=== PATIENT | female | born 1995 | race Caucasian/White ===

== ENCOUNTER → 2017-08-29 | Outpatient (CLI) | payer BC ==
--- NOTE | 2017-08-29 16:06 | US ---
EXAMINATION TYPE: US OB anatomy transabd DATE OF EXAM: 08/29/2017 COMPARISON: US HISTORY: O36.62X0 2nd trimester TECHNIQUE: Transabdominal (TA) FINDINGS: EXAM MEASUREMENTS: GESTATIONAL AGE / DATING Physician Established: (19 weeks/5 days) EDC: 01/18/2018 Dates by LMP: (23 weeks/1 day) EDC: 12/25/2017 Dates by First Scan: (19 weeks/5 days) EDC: 01/18/2018 Dates by Current Scan for: (20 weeks/2 days) EDC: 01/14/2018 SURVEY IUP: Single PLACENTA: Anterior PREVIA: No previa FRANSISCA: 14.5 cm Normal CERVICAL LENGTH (transabdominal: norm > 3.0cm): 5.1 cm BIOMETRY PRESENTATION: Vertex LIE: Longitudinal BPD: 4.8 cm 20 weeks / 4 days HC: 17.7 cm 20 weeks / 1 day AC: 15.8 cm 21 weeks / 0 days FL: 3.3 cm 20 weeks / 3 days ESTIMATED WEIGHT IN GRAMS: 369.2 grams ESTIMATED WEIGHT IN LBS/OZ: 0 lbs. 13 oz. WEIGHT PERCENTAGE BASED ON ESTABLISHED DATE: 92.0 % HC/AC: 1.12 Normal FL/AC: 21.1 Normal HEART RATE: 142 bpm RHYTHM: Normal ANATOMY SEEN (within normal limits): Lateral Vent (< 1 cm) 0.9 cm, borderline enlarged Cisterna Magna (< 1.1 cm) 0.4 cm Nuchal Fold (< 0.6 cm) 0.5 cm Cerebellum (varies with age) 2.0 cm Choroid Plexus (bilateral) Midline Falx Four Chamber Heart Stomach Situs Diaphragm Kidneys (bilateral) Bladder Cord Insert Three Vessel Cord Longitudinal Spine Transverse Spine ANATOMY SUBOPTIMALLY VISUALIZED: Cavus Septi Pellucidi Nose / Lips Outflow tracts: LVOT/RVOT Arms (bilateral) Legs (bilateral) LINE MAINTAINER SECTION NOTES: Single, live IUP,20 weeks/2 days, EDC: 01/14/2018, HR 142bpm; focal myometrial con traction was noted on posterior uterine wall at exam's start and subsided by exam's end. IMPRESSION: 1. Single live uterine with established gestational age of 19 weeks 5 days by prior dating scan. Current ultrasound biometry (20 weeks 2 days) is concordant placing the child at the 92nd perce ntile for weight. 2. A few of the structures on the survey were suboptimally visualized (CSP, nose/lips, outflow tracts, bilateral upper and lower extremities). In addition, the ventricles measured at the upper yanes its of normal in size. Consider rescan for missed anatomy in 1 to 2 weeks. 3. Follow-up as indicated given the EFW at the 92nd percentile.
== END | disposition home or self-care (01) ==
LOC: RADUSWWP 10:56
PROVIDERS: ATTEND Obstetrics & Gynecology
DX: O36.62X0 Maternal care for excessive fetal growth, second trimester, not applicable or unspecified (principal); Z3A.20 20 weeks gestation of pregnancy
CPT/HCPCS: 76811

== ENCOUNTER → 2017-09-11 | Outpatient (CLI) | payer BC ==
--- NOTE | 2017-09-12 08:00 | US ---
EXAMINATION TYPE: US OB Call Back DATE OF EXAM: 09/11/2017 COMPARISON: 08/29/2017 CLINICAL HISTORY: Z36 Confirm Dates f/u from remainder. GESTATIONAL AGE / DATING Dates by Initial Survey Scan: (20 weeks/2 days) EDC: 01/14/18 HEART RATE: 143 bpm RHYTHM: Normal ANATOMY SEEN (second anatomic survey look): Cavus Septi Pellucidi: Outflow tracts:? LVOT/RVOT Nose / Lips: Arms (bilateral): Legs (bilateral): MATERNAL WALL MEASUREMENT: 3.4 cm from skin to anterior uterine wall (if exam limited due to body perez bitus). IMPRESSION: Visualized anatomy within normal limits
== END ==
LOC: CANPRECLI → RADUSWWP 15:43
PROVIDERS: ATTEND Obstetrics & Gynecology
DX: Z53.9 Procedure and treatment not carried out, unspecified reason (principal)

== ENCOUNTER 2017-12-08 12:36 | Outpatient (CLI) | payer BC ==
[2017-12-08 13:08] VITALS: BP 106/58; PULSE 137; RESP 20; TEMP 98.9
[2017-12-08 13:10] LABS: Appearance,Urine Cloudy (Clear); Bacteria,Urine Rare /hpf; Bilirubin,Urine Negative (Negative); Blood,Urine Negative (Negative); Color,Urine Yellow; Glucose,Urine (UA) Negative (Negative); Ketones,Urine Negative (Negative); Leukocyte Esterase,Urine Negative (Negative); Mucus,Urine Rare /hpf; Nitrite,Urine Negative (Negative); PH, Urine 6.5 (5.0-8.0); Protein,Urine 1+ (Negative); RBC,Urine <1 /hpf (0-5); Specific Gravity,Urine 1.019 (1.001-1.035); Squamous Epithelial Cell,Urine 11 /hpf (0-4); WBC,Urine 2 /hpf (0-5)
--- NOTE | 2017-12-09 07:30 | P.MSEPDOC ---
Presenting Problems - Arrival Data Date of Arrival on Unit: 12/08/17 Time of Arrival on Unit: 12:42 Mode of Transport: Ambulatory - Complaint OB-Reason for Admission/Chief Complaint: Pain Comment: pt c/o back pain that comes and goes since monday denies any leaking of fluid or bleeding Medical History - Information : 1 Para: 0 Term: 0 : 0 Abortions: Spontaneous or Elective: 0 Number of Living Children: 0 - Gestational Age Gestational Age by CARINE (wks/days): 34 Weeks and 1 Days Review of Systems - Review of Systems Constitutional: No problems Breast: No problems ENT: No problems Cardiovascular: No problems Respiratory: No problems Gastrointestinal: No problems Genitourinary: No problems Musculoskeletal: No problems Neurological: No problems Skin: No problems Comment: pt heart rate 125-130. pt denies any heart problems pt asked if shes been drinking alot of fluid pt denies at this time Vital Signs - Temperature Temperature: 98.9 F Temperature Source: Oral - Pulse Right Brachial Pulse Rate: 137 Pulse Assessment Method: Automatic Cuff - Respirations Respiratory Rate: 20 Oxygen Delivery Method: Room Air - Blood Pressure Right Arm Blood Pressure: 106/58 Blood Pressure Mean: 74 Blood Pressure Source: Automatic Cuff Medical Screen Scoring (Pre) - Cervical Exam Dilation: 0 cm = 0 Membranes: Intact - Uterine Contractions Frequency: N/A Duration: N/A - Maternal Vital Signs Maternal Temperature: N/A Maternal Blood Pressure: N/A Signs of Preeclampsia: Headache = 1 Maternal Respirations: N/A - Pain Assessment Pain Location and Character: Back Pain Scale Used: Numeric (1 - 10) Pain Intensity: 2 Pain Management Goal: 2 Pain Description: Stabbing Pain Radiation Location: n/a Pain Frequency: Occasional Pain Duration: 30 Pain Duration Units: Minutes Pain Behavior: Vocalization Pain Aggravating Factors: Position, Walking Non-Pharmacological Interventions: Heat, Position/Reposition - Maternal Trauma Maternal Trauma: N/A - Assessment Baseline FHR: 150 Heart Rate - NICHD Category: Category I (Normal) = 0 - Total Score Total Score (Pre): 1 Medical Screen Scoring (Post) - Assessment Heart Rate: 150 Heart Rate - NICHD Category: Category I (Normal) = 0 NST: Reactive Position: N/A Station: N/A - Total Score Total Score (Post): 0 - Post Treatment Level of Risk Post Treatment Level of Risk: Low (0-5) Physician Notification (Post) - Physician Notified Physician Notified Date: 12/08/17 Physician Notified Time: 13:20 Spoke With: dr walsh New Order Received: Yes - Notification Comment Comment: pt transferred to the er for further evulation for tachycardia Disposition - Disposition OB Disposition: Transfer to other dept./facility Transferred to:: ER Discharge Date: 12/08/17 Discharge Time: 13:30 I agree with the RN Medical Screening Exam: Yes Risk & Benefit of care provided described in d/c instruction: Yes Diagnosis: LOW BACK PAIN
== END 2017-12-08 13:30 ==
LOC: FBPOP 12:36
PROVIDERS: ATTEND Obstetrics & Gynecology
DX: O99.89 Other specified diseases and conditions complicating pregnancy, childbirth and the puerperium (principal); M54.5 Low back pain; Z3A.34 34 weeks gestation of pregnancy
CPT/HCPCS: 59025; 81001; 99213

== ENCOUNTER 2017-12-08 13:31 | Emergency (ER) | payer BC ==
[2017-12-08] MEDS ORDERED: SODIUM CHLORIDE 0.9% 1,000 ML IV STA (13:48)
[2017-12-08] MEDS ORDERED: SODIUM CHLORIDE 0.9% 500 ML IV STA (13:48)
--- NOTE | 2017-12-08 14:04 | ED ---
Recheck HPI - General Chief Complaint: Recheck/Abnormal Lab/Rx Stated Complaint: Tachycardiac Time Seen by Provider: 12/08/17 13:47 Source: patient, RN notes reviewed Mode of arrival: ambulatory Limitations: no limitations - History of Present Illness Initial Comments: 22-year-old female presents emergency Department chief complaint of tachycardia. Patient states that she went to labor and delivery today because she was having some back discomfort nephrology was not in labor. They did find that her heart rate was elevated which she states she's been sick and not drinking as much. States that she's had COLD like symptoms. Denies any chest pain. Patient denies any shortness of breath time. Denies fever, chills. Patient states that they sent her down here for evaluation secondary to her elevated heart rate. Patient has no abdominal pain denies any vaginal bleeding vaginal discharge. No dysuria, hematuria. - Related Data Home Medications Medication Instructions Recorded Confirmed No Known Home Medications [No 06/21/17 12/08/17 Known Home Medications] Allergies Allergy/AdvReac Type Severity Reaction Status Date / Time No Known Allergies Allergy Verified 12/08/17 13:44 Review of Systems ROS Statement: Those systems with pertinent positive or pertinent negative responses have been documented in the HPI. ROS Other: All systems not noted in ROS Statement are negative. Past Medical History Past Medical History: No Reported History Additional Past Medical History / Comment(s): anemia History of Any Multi-Drug Resistant Organisms: None Reported Past Surgical History: Ear Surgery Additional Past Surgical History / Comment(s): LEFT EYE PROBLEM, PE EARS Past Psychological History: No Psychological Hx Reported Smoking Status: Never smoker Past Alcohol Use History: None Reported Past Drug Use History: None Reported General Exam Limitations: no limitations General appearance: alert, in no apparent distress Head exam: Present: atraumatic, normocephalic, normal inspection Eye exam: Present: normal appearance, PERRL, EOMI. Absent: scleral icterus, conjunctival injection, periorbital swelling ENT exam: Present: normal exam, normal oropharynx, mucous membranes moist, TM's normal bilaterally, normal external ear exam Neck exam: Present: normal inspection, full ROM. Absent: tenderness, meningismus, lymphadenopathy Respiratory exam: Present: normal lung sounds bilaterally. Absent: respiratory distress, wheezes, rales, rhonchi, stridor Cardiovascular Exam: Present: normal rhythm, tachycardia (Tachycardic at 118 on triage.), normal heart sounds. Absent: systolic murmur, diastolic murmur, rubs , gallop, clicks GI/Abdominal exam: Present: soft, normal bowel sounds. Absent: distended, tenderness, guarding, rebound, rigid Skin exam: Present: warm, dry, intact, normal color. Absent: rash Course Vital Signs 12/08/17 12/08/17 12/08/17 13:37 14:35 15:21 Temperature 99.6 F 100.8 F H Pulse Rate 118 H 118 H 114 H Respiratory 22 18 18 Rate Blood Pressure 130/61 121/60 O2 Sat by Pulse 99 96 98 Oximetry Medical Decision Making - Medical Decision Making 22-year-old female sent down from labor and delivery for tachycardia. Patient is tachycardic secondary to influenza, fever. Patient was well-hydrated ( reviewed. Patient's urinalysis was refill labor and delivery. Patient states she feels improved. Patient was given Tylenol upon discharge and will be follow -up with [facility] and return parameters were discussed. - Lab Data Result diagrams: 12/08/17 14:20 12/08/17 14:20 Lab Results 12/08/17 12/08/17 12/08/17 Range/Units 14:20 14:20 14:20 WBC 6.9 (4.0-11.0) k/uL RBC 4.72 (3.80-5.40) m/uL Hgb 12.6 (11.4-16.0) gm/dL Hct 36.3 (34.0-46.0) % MCV 76.9 L (80.0-100.0) fL MCH 26.7 (25.0-35.0) pg MCHC 34.7 (31.0-37.0) g/dL RDW 13.9 (11.5-15.5) % Plt Count 226 (150-450) k/uL Neutrophils % 83 % Lymphocytes % 9 % Monocytes % 6 % Eosinophils % 1 % Basophils % 0 % Neutrophils # 5.7 (1.3-7.7) k/uL Lymphocytes # 0.6 L (1.0-4.8) k/uL Monocytes # 0.4 (0-1.0) k/uL Eosinophils # 0.0 (0-0.7) k/uL Basophils # 0.0 (0-0.2) k/uL Poikilocytosis Slight Sodium 137 (137-145) mmol/L Potassium 4.3 (3.5-5.1) mmol/L Chloride 107 (98-107) mmol/L Carbon Dioxide 19 L (22-30) mmol/L Anion Gap 11 mmol/L BUN 8 (7-17) mg/dL Creatinine 0.50 L (0.52-1.04) mg/dL Est GFR (CKD-EPI)AfAm >90 (>60 ml/min/1.73 sqM) Est GFR (CKD-EPI)NonAf >90 (>60 ml/min/1.73 sqM) Glucose 73 L (74-99) mg/dL Calcium 8.9 (8.4-10.2) mg/dL Total Bilirubin 0.9 (0.2-1.3) mg/dL AST 34 (14-36) U/L ALT 20 (9-52) U/L Alkaline Phosphatase 148 H (38-126) U/L Troponin I <0.012 (0.000-0.034) ng/mL Total Protein 6.5 (6.3-8.2) g/dL Albumin 3.4 L (3.5-5.0) g/dL Amylase 50 (30-110) U/L Lipase 88 (23-300) U/L Influenza Type A RNA (Not Detectd) Influenza Type B (PCR) (Not Detectd) 12/08/17 Range/Units 14:20 WBC (4.0-11.0) k/uL RBC (3.80-5.40) m/uL Hgb (11.4-16.0) gm/dL Hct (34.0-46.0) % MCV (80.0-100.0) fL MCH (25.0-35.0) pg MCHC (31.0-37.0) g/dL RDW (11.5-15.5) % Plt Count (150-450) k/uL Neutrophils % % Lymphocytes % % Monocytes % % Eosinophils % % Basophils % % Neutrophils # (1.3-7.7) k/uL Lymphocytes # (1.0-4.8) k/uL Monocytes # (0-1.0) k/uL Eosinophils # (0-0.7) k/uL Basophils # (0-0.2) k/uL Poikilocytosis Sodium (137-145) mmol/L Potassium (3.5-5.1) mmol/L Chloride (98-107) mmol/L Carbon Dioxide (22-30) mmol/L Anion Gap mmol/L BUN (7-17) mg/dL Creatinine (0.52-1.04) mg/dL Est GFR (CKD-EPI)AfAm (>60 ml/min/1.73 sqM) Est GFR (CKD-EPI)NonAf (>60 ml/min/1.73 sqM) Glucose (74-99) mg/dL Calcium (8.4-10.2) mg/dL Total Bilirubin (0.2-1.3) mg/dL AST (14-36) U/L ALT (9-52) U/L Alkaline Phosphatase (38-126) U/L Troponin I (0.000-0.034) ng/mL Total Protein (6.3-8.2) g/dL Albumin (3.5-5.0) g/dL Amylase (30-110) U/L Lipase (23-300) U/L Influenza Type A RNA Detected H (Not Detectd) Influenza Type B (PCR) Not Detected (Not Detectd) - EKG Data EKG Comments: EKG performed at 13:49 sinus tachycardia rate of 125 [place] 124 QRS 72 QT/QTC 322/ 464 Disposition Clinical Impression: Influenza Disposition: HOME SELF-CARE Condition: Stable Instructions: Influenza (ED) Additional Instructions: Continue to increase your fluids and take acetaminophen as directed.Please return to the Emergency Department if symptoms worsen or any other concerns. Referrals: None,Stated [Primary Care Provider] - 1-2 days Time of Disposition: 15:25
--- NOTE | 2017-12-08 14:17 | XR ---
EXAMINATION TYPE: XR chest 2V DATE OF EXAM: 12/08/2017 COMPARISON: NONE TECHNIQUE: PA and lateral views submitted. HISTORY: Abnormal EKG FINDINGS: The lungs are clear and there is no pneumothorax, pleural effusion, or focal pneumonia. Heart size within normal limits. No overt failure. IMPRESSION: 1. No acute process.
[2017-12-08 14:37] VITALS: RESP 18
[2017-12-08 14:42] LABS: Basophils % (A) 0 %; Eosinophils % (A) 1 %; HCT 36.3 % (34.0-46.0); HGB 12.6 gm/dL (11.4-16.0); Lymphocytes # (A) 0.6 k/uL (1.0-4.8); Lymphocytes % (A) 9 %; MCH 26.7 pg (25.0-35.0); MCHC 34.7 g/dL (31.0-37.0); MCV 76.9 fL (80.0-100.0); Mean Platelet Volume 8.2; Monocytes # (A) 0.4 k/uL (0-1.0); Monocytes % (A) 6 %; Neutrophils # (A) 5.7 k/uL (1.3-7.7); Neutrophils % (A) 83 %; Platelet Count 226 k/uL (150-450); Poikilocytosis Slight; RBC 4.72 m/uL (3.80-5.40); RDW 13.9 % (11.5-15.5); WBC 6.9 k/uL (4.0-11.0)
[2017-12-08 14:54] LABS: ALT 20 U/L (9-52); AST 34 U/L (14-36); Albumin 3.4 g/dL (3.5-5.0); Alkaline Phosphatase 148 U/L (38-126); Amylase 50 U/L (30-110); Anion Gap 11 mmol/L; Blood Urea Nitrogen 8 mg/dL (7-17); Calcium 8.9 mg/dL (8.4-10.2); Carbon Dioxide 19 mmol/L (22-30); Chloride 107 mmol/L (98-107); Glucose 73 mg/dL (74-99); Lipase 88 U/L (23-300); Sodium 137 mmol/L (137-145); Total Bilirubin 0.9 mg/dL (0.2-1.3); Total Protein 6.5 g/dL (6.3-8.2)
[2017-12-08 14:59] LABS: Potassium 4.3 mmol/L (3.5-5.1)
[2017-12-08] MEDS ORDERED: ACETAMINOPHEN TAB 500 MG TAB PO STA (15:21)
[2017-12-08 15:22] VITALS: PULSE 114; TEMP 100.8
[2017-12-08 15:38] VITALS: BP 136/62
== END 2017-12-08 15:43 | disposition home or self-care (01) ==
LOC: EC 13:31
DX: O99.513 Diseases of the respiratory system complicating pregnancy, third trimester (principal); J11.1 Influenza due to unidentified influenza virus with other respiratory manifestations; O99.89 Other specified diseases and conditions complicating pregnancy, childbirth and the puerperium; R00.0 Tachycardia, unspecified; Z3A.34 34 weeks gestation of pregnancy
CPT/HCPCS: 36415; 71046; 80053; 82150; 83690; 84484; 85025; 87502; 93005; 96360; 99285

== ENCOUNTER → 2017-12-19 | Outpatient (CLI) | payer BC ==
--- NOTE | 2017-12-19 14:55 | US ---
EXAMINATION TYPE: US OB anatomy transabd DATE OF EXAM: 12/19/2017 COMPARISON: Prior ultrasound August 29, 2017 HISTORY: Large for dates 3rd Trimester O36.63X0 Anatomy per order. TECHNIQUE: Transabdominal (TA) EXAM MEASUREMENTS: GESTATIONAL AGE / DATING Physician Established: (35 weeks/5 days) EDC: 01/18/2018 Dates by Current Scan for: (35 weeks/1 days) EDC: 01/22/2018 SURVEY IUP: Single PLACENTA: Anterior PREVIA: No previa FRANSISCA: 11.4 cm Normal CERVICAL LENGTH (transabdominal: norm > 3.0cm): 3.9 cm BIOMETRY PRESENTATION: Vertex LIE: Longitudinal BPD: 8.6 cm 34 weeks / 5 days HC: 31.1 cm 34 weeks / 6 days AC: 31.6 cm 35 weeks / 4 days FL: 6.9 cm 35 weeks / 3 days ESTIMATED WEIGHT IN GRAMS: 2654 grams ESTIMATED WEIGHT IN LBS/OZ: 5 lbs. 14 oz. WEIGHT PERCENTAGE BASED ON ESTABLISHED DATE: 39.1 % HC/AC: 1.0 Normal FL/AC: 21.9 Normal HEART RATE: 154 bpm RHYTHM: Normal ANATOMY SEEN (within normal limits): * Lateral Vent (< 1 cm) 0.7 cm Choroid Plexus (bilateral) Midline Falx Four Chamber Heart Stomach Situs Bladder Three Vessel Cord Longitudinal Spine Transverse Spine Legs (bilateral) ANATOMY SEEN (does not appear within normal limits): Kidneys (bilateral) -- dilated renal pelvis- Right= 8.1 mm Left= 7.0 mm ANATOMY NOT SEEN: * Cisterna Magna * Nuchal Fold * Cerebellum Cavus Septi Pellucidi Outflow tracts: LVOT/RVOT Nose / Lips Diaphragm Cord Insert Arms (bilateral) Single live intrauterine gestation is redemonstrated. Normal cephalad presentation to fetus is curren tly seen. No suspicious cervical thinning is present. Amniotic fluid index is calculated within mu l limits. There is no ultrasound evidence for placenta previa. biometry measurements are concor dant and felt within normal limits currently. Detailed anatomical survey is suboptimal due to advanced age. Note is made of portions suboptim ally evaluated during real-time scanning noted above. On current study there appears to be fairly mod erate bilateral pyelocaliectasis. Given presence of normal amniotic fluid index this likely can be mo nitored or reevaluated post delivery. IMPRESSION: As above
== END | disposition home or self-care (01) ==
LOC: RADUSWWP 13:41
PROVIDERS: ATTEND Obstetrics & Gynecology
DX: O36.63X3 Maternal care for excessive fetal growth, third trimester, fetus 3 (principal); Z3A.35 35 weeks gestation of pregnancy
CPT/HCPCS: 76811

== ENCOUNTER 2018-01-04 10:42 | Outpatient (CLI) | payer BC ==
[2018-01-04 11:12] VITALS: BP 114/73; PULSE 114; RESP 18; TEMP 97.5
--- NOTE | 2018-01-05 05:57 | P.MSEPDOC ---
Presenting Problems - Arrival Data Date of Arrival on Unit: 01/04/18 Time of Arrival on Unit: 10:50 Mode of Transport: Ambulatory - Complaint OB-Reason for Admission/Chief Complaint: Rule Out SROM Comment: appt with dr Hubbard on with cervical exam, leaking fluid since mon, + intercourse this morning Medical History - Information : 1 Para: 0 Term: 0 : 0 Abortions: Spontaneous or Elective: 0 Number of Living Children: 0 - Gestational Age Gestational Age by CARINE (wks/days): 38 Weeks and 0 Days - History Comment: denies complications Review of Systems - Review of Systems Constitutional: No problems Breast: No problems ENT: No problems Cardiovascular: No problems Respiratory: No problems Gastrointestinal: No problems Genitourinary: No problems Musculoskeletal: No problems Neurological: No problems Skin: No problems Vital Signs - Temperature Temperature: 97.5 F Temperature Source: Temporal Artery Scan - Pulse Right Sitting Brachial Pulse Rate: 114 Pulse Assessment Method: Automatic Cuff - Respirations Respiratory Rate: 18 Oxygen Delivery Method: Room Air - Blood Pressure Right Arm Sitting Blood Pressure: 114/73 Blood Pressure Mean: 86 Blood Pressure Source: Automatic Cuff Medical Screen Scoring (Pre) - Cervical Exam Dilation: 1-3 cm = 1 - Uterine Contractions Frequency: > 5 minutes apart = 1 Duration: N/A Intensity: N/A - Maternal Vital Signs Maternal Temperature: N/A Maternal Blood Pressure: N/A Signs of Preeclampsia: N/A Maternal Respirations: N/A - Pain Assessment Pain Location and Character: Back Pain Scale Used: Numeric (1 - 10) Pain Intensity: 2 Pain Management Goal: 3 Pain Description: Aching Pain Radiation Location: none Pain Frequency: Occasional Pain Duration: 10 Pain Duration Units: Minutes Pain Behavior: None Exhibited Pain Aggravating Factors: Activity - Maternal Trauma Maternal Trauma: N/A - Assessment Baseline FHR: 135 Heart Rate - NICHD Category: Category I (Normal) = 0 NST: Reactive Position: N/A Station: N/A - Total Score Total Score (Pre): 2 - Level of Risk Level of Risk: Low (0-5) Physician Notification (Post) - Physician Notified Physician Notified Date: 01/04/18 Physician Notified Time: 11:20 Physician/Practitioner Notified:: Dr Mckoy Spoke With: Dr Mckoy New Order Received: Yes - Notification Comment Comment: Discharge home after reactive NST Disposition - Disposition OB Disposition: Discharge to home Discharge Date: 01/04/18 Discharge Time: 11:23 I agree with the RN Medical Screening Exam: Yes Risk & Benefit of care provided described in d/c instruction: Yes Diagnosis: FALSE LABOR AT OR AFTER 37 COMPLETED WEEKS OF GESTATION
== END 2018-01-04 11:26 | disposition home or self-care (01) ==
LOC: FBPOP 10:42
PROVIDERS: ATTEND Obstetrics & Gynecology
DX: O47.1 False labor at or after 37 completed weeks of gestation (principal); Z3A.38 38 weeks gestation of pregnancy
CPT/HCPCS: 59025; 84112; 99213

== ENCOUNTER 2018-01-06 13:05 | Inpatient (IN) | payer BC ==
[2018-01-06] MEDS ORDERED: OXYTOCIN 10 UNIT/ML 1 ML VIAL IM PRN (13:28)
[2018-01-06] MEDS ORDERED: LIDOCAINE 1% (PF) 10 MG/ML (30 ML SDV) SQ PRN (13:28)
[2018-01-06] MEDS ORDERED: METHYLERGONOVINE 0.2 MG/ML 1 ML AMP IM PRN (13:28)
[2018-01-06] MEDS ORDERED: TERBUTALINE 1 MG/ML VIAL SQ PRN (13:28)
[2018-01-06] MEDS ORDERED: CARBOPROST TROMETHAMINE 250 MCG/ML 1 ML AMP IM PRN (13:28)
[2018-01-06 14:21] LABS: Basophils % (A) 0 %; Eosinophils % (A) 0 %; HCT 37.3 % (34.0-46.0); HGB 12.3 gm/dL (11.4-16.0); Lymphocytes # (A) 3.2 k/uL (1.0-4.8); Lymphocytes % (A) 28 %; MCH 25.6 pg (25.0-35.0); MCHC 32.9 g/dL (31.0-37.0); MCV 77.9 fL (80.0-100.0); Mean Platelet Volume 9.2; Monocytes # (A) 0.5 k/uL (0-1.0); Monocytes % (A) 4 %; Neutrophils # (A) 7.7 k/uL (1.3-7.7); Neutrophils % (A) 66 %; Platelet Count 287 k/uL (150-450); RBC 4.79 m/uL (3.80-5.40); RDW 15.6 % (11.5-15.5); WBC 11.7 k/uL (4.0-11.0)
[2018-01-06 14:50] VITALS: BMI 39.8
[2018-01-06] MEDS ORDERED: BUTORPHANOL 1 MG/ML 1 ML VIAL IV PRN (14:57)
[2018-01-06] MEDS: OXYTOCIN 20 UNITS/1000 ML NS 1,000 ML IV SCH (15:18)
[2018-01-06] MEDS: LACTATED RINGERS 1,000 ML IV SCH ×4 (15:18→21:43)
[2018-01-06 16:36] LABS: Amphetamine Screen,Urine Not Detected (NotDetected); Barbiturate Screen,Urine Not Detected (NotDetected); Benzodiazepines Screen,Urine Not Detected (NotDetected); Cocaine Screen,Urine Not Detected (NotDetected); Methadone Screen, Urine Not Detected (NotDetected); Opiate Screen,Urine Not Detected (NotDetected); Oxycodone Screen, Urine Not Detected (NotDetected); Phencyclidine Screen,Urine Not Detected (NotDetected); Tricyclic Antidepressant,Urine Not Detected (NotDetected); Urn Cannabinoid Scrn Not Detected (NotDetected)
[2018-01-06] MEDS ORDERED: SODIUM CHLORIDE 0.9% 100 ML BAG ONE ×2 (17:22→20:17)
[2018-01-06] MEDS ORDERED: fentaNYL (PF) 50 MCG/ML 5 ML AMP ONE ×2 (17:22→20:17)
[2018-01-06] MEDS ORDERED: BUPIVACAINE (PF) 0.25% 30 ML VIAL ONE ×2 (17:22→20:17)
[2018-01-06] MEDS ORDERED: BUPIVACAINE (PF) 0.25% 25 ML, fentaNYL (PF) 200 MCG in SODIUM CHLORIDE 0.9% 71 ML EPIDURAL ONE (17:50)
[2018-01-06] MEDS ORDERED: CITRIC ACID-SODIUM CITRATE 15 ML CUP PO ONE (19:49)
[2018-01-06] MEDS ORDERED: ceFAZolin IN SWFI 2 GM/20 ML SYRINGE IVP ONE (19:49)
[2018-01-06] MEDS ORDERED: KETOROLAC 30 MG/ML 1 ML VIAL ONE (20:17)
[2018-01-06] MEDS ORDERED: MORPHINE SULFATE (PF) 0.3 MG/0.3 ML SYR ONE (20:17)
[2018-01-06] MEDS ORDERED: ONDANSETRON 4 MG/2 ML VIAL ONE (20:17)
[2018-01-06] MEDS ORDERED: OXYTOCIN 10 UNIT/ML 1 ML VIAL ONE (20:17)
[2018-01-06] MEDS ORDERED: ONDANSETRON 4 MG/2 ML VIAL IVP PRN (20:51)
[2018-01-06] MEDS ORDERED: diphenhydrAMINE 25 MG CAP PO PRN (20:51)
[2018-01-06] MEDS ORDERED: HYDROcodone/APAP 7.5-325MG 1 EACH TAB PO PRN (20:51)
[2018-01-06] MEDS ORDERED: diphenhydrAMINE 50 MG CAP PO PRN (20:51)
[2018-01-06] MEDS ORDERED: METOCLOPRAMIDE 5 MG/ML 2 ML VIAL IVP PRN (20:51)
[2018-01-06] MEDS ORDERED: ACETAMINOPHEN TAB 325 MG TAB PO PRN (20:51)
[2018-01-06] MEDS ORDERED: ZOLPIDEM 5 MG TAB PO PRN (20:51)
[2018-01-06] MEDS ORDERED: diphenhydrAMINE 50 MG/ML 1 ML VIAL IVP PRN ×2 (20:51)
[2018-01-06] MEDS ORDERED: NALOXONE 0.4 MG/ML 1 ML VIAL IV PRN (20:51)
--- NOTE | 2018-01-06 20:55 | P.HPOB ---
History of Present Illness H&P Date: 01/06/18 Chief Complaint: Intrauterine at term: Prom Patient is a 22-year-old at 38 weeks 2 days' gestation arise following spontaneous rupture of membranes. Fluid is noted be clear. She denies any constipation with the and is feeling well at this time however she is not michael. Pitocin augmentation of labor will be initiated. She was followed by Dr. Hector antigen had no significant competitions pertinent labs did include O+ blood type Rh and it was negative, rubella immune, hepatitis B surface antigen RPR were negative. Group B strep was also negative. Past Medical History Past Medical History: No Reported History Additional Past Medical History / Comment(s): anemia History of Any Multi-Drug Resistant Organisms: None Reported Past Surgical History: Ear Surgery Additional Past Surgical History / Comment(s): LEFT EYE PROBLEM, PE EARS Past Anesthesia/Blood Transfusion Reactions: No Reported Reaction Past Psychological History: No Psychological Hx Reported Smoking Status: Never smoker Past Alcohol Use History: None Reported Past Drug Use History: None Reported - Past Family History Mother History Unknown: Yes Medications and Allergies Home Medications Medication Instructions Recorded Confirmed Type No Known Home Medications [No 06/21/17 01/06/18 History Known Home Medications] Allergies Allergy/AdvReac Type Severity Reaction Status Date / Time No Known Allergies Allergy Verified 01/06/18 13:13 Exam Osteopathic Statement: *. No significant issues noted on an osteopathic structural exam other than those noted in the History and Physical/Consult. - Vital Signs Vital signs: Vital Signs Temp Pulse Pulse Resp BP BP Pulse Ox 01/06/18 13:30 97.6 F 100 18 114/57 97 01/06/18 13:15 97.6 F 100 100 18 114/57 114/57 97 Intake and Output 01/06/18 01/06/18 01/06/18 06:59 14:59 22:59 Other: Weight 105.233 kg - OBG Physical Exam Breast: both: normal (no masses) Abdomen: bowel sounds normal, no diffuse tenderness, no bruit present, no guarding noted, no hepatomegaly, no splenomegaly, no mass Vulva: both: normal Vagina: normal moisture, no discharge Cervix: Dilated to 3 cm 60% effaced -3 station Cervix: no lesion, no discharge Uterus: normal size, normal contour Adnexa: both: normal Anus/Rectum: normal perianal skin, no rectal mass, no hemorrhoids, heme negative Results Result Diagrams: 01/06/18 13:45 Abnormal Lab Results - Last 24 Hours (Table) 01/06/18 Range/Units 13:45 WBC 11.7 H (4.0-11.0) k/uL MCV 77.9 L (80.0-100.0) fL RDW 15.6 H (11.5-15.5) % Assessment and Plan Assessment: Intrauterine at term: Prom
--- NOTE | 2018-01-06 20:58 | P.OP ---
Date of Procedure: 01/06/18 Preoperative Diagnosis: Intrauterine at term: Nonreassuring heart tones: Arrest of active phase of labor Postoperative Diagnosis: Same Procedure(s) Performed: Primary low transverse section Anesthesia: epidural Surgeon: Deandre Llamas Educational Program Assistant #1: Damian Jin Estimated Blood Loss (ml): 500 IV fluids (ml): 700 Urine output (ml): 100 Pathology: other (Placenta) Condition: stable Disposition: floor Operative Findings: Female scores of 8 and 9 at one and 5 minutes respectively and the weight was 6 lbs. 11 oz. Description of Procedure: Patient was taken to the operating suite where a epidural anesthetic was found be adequate. She was prepped and draped in normal sterile fashion and placed in dorsal supine position with leftward tilt. Initially a Pfannenstiel skin incision was made and this incision was then carried through to underlying layer of the fascia was second knife. Fascia was then nicked in the midline and this opening was extended laterally with Burger scissors. Superior and inferior aspect of this incision were then grasped tented up and bluntly and sharply dissected off the rectus muscles. Rectus muscles were then divided midline and blunt dissection through the peritoneum was made. This opening was then extended superiorly and inferiorly with good visualization of both bowel bladder. Bladder blade was then placed and the vesicouterine peritoneum identified. This tissue was then entered with Metzenbaum scissors and carried across face uterus with metastases scissors. Bladder flap was then digitally created. Knife was then used to incise uterus hemostat was used to fully entered the uterine cavity and this incision was then extended bluntly. Head was then H medically delivered mouth nares were bulb suctioned. Anterior and posterior shoulders then delivered without difficulty and umbilical cord was clamped cut usual fashion with nursery personnel present to assume care. Placenta was then delivered intact and Pitocin was added to the IV. Uterus was then exteriorized cleared of clots and debris and closed in 2 layers with 0 Vicryl suture. Once hemostasis was obtained blood and debris was suctioned from the posterior cul-de-sac and uterus was reinserted into the abdomen. Peritoneal layer was then closed with 3-0 Vicryl. Fascial layer was closed with 0 Vicryl's. One layer of 3-0 Vicryl was placed in the deep subcu taken tissues to reapproximate the skin and the skin was then closed with 3-0 Vicryl. Sponge, lap, needle counts were all correct 2. Patient was then taken to the recovery room in stable and satisfactory condition.
[2018-01-07] MEDS: KETOROLAC 30 MG/ML 1 ML VIAL IVP SCH ×4 (03:14→22:24)
[2018-01-07 07:18] LABS: Basophils % (A) 0 %; Eosinophils # (A) 0.1 k/uL (0-0.7); Eosinophils % (A) 0 %; HCT 32.1 % (34.0-46.0); HGB 10.7 gm/dL (11.4-16.0); Lymphocytes # (A) 2.8 k/uL (1.0-4.8); Lymphocytes % (A) 24 %; MCH 26.6 pg (25.0-35.0); MCHC 33.4 g/dL (31.0-37.0); MCV 79.8 fL (80.0-100.0); Mean Platelet Volume 8.4; Monocytes # (A) 0.9 k/uL (0-1.0); Monocytes % (A) 7 %; Neutrophils % (A) 67 %; Platelet Count 223 k/uL (150-450); RBC 4.02 m/uL (3.80-5.40); RDW 15.4 % (11.5-15.5)
--- NOTE | 2018-01-07 08:05 | P.PNOBGPC ---
Subjective - Subjective Principal diagnosis: Postop day 1 Interval history: Overall doing very well. Vital signs are stable and afebrile. Voices no complaints. Patient reports: Reports appetite normal, Reports voiding normally, Reports pain well controlled, Reports ambulating normally [place]: doing well Objective - Vital Signs Latest vital signs: Vital Signs Temp Pulse Pulse Resp BP BP BP 01/07/18 04:00 98.1 F 72 16 110/54 01/06/18 23:00 97.9 F 106 H 16 125/61 01/06/18 22:26 97.5 F L 97 16 121/66 01/06/18 21:56 95 16 134/60 01/06/18 21:41 97.9 F 100 16 130/61 01/06/18 21:26 97.9 F 109 H 16 142/77 01/06/18 21:11 98 18 148/66 01/06/18 20:56 97.2 F L 114 H 18 119/58 01/06/18 13:30 97.6 F 100 18 114/57 01/06/18 13:15 97.6 F 100 100 18 114/57 114/57 Pulse Ox 01/07/18 04:00 98 01/06/18 23:00 98 01/06/18 22:26 97 01/06/18 21:56 98 01/06/18 21:41 100 01/06/18 21:26 99 01/06/18 21:11 99 01/06/18 20:56 98 01/06/18 13:30 97 01/06/18 13:15 97 Intake and Output 01/06/18 01/07/18 01/07/18 22:59 06:59 14:59 Intake Total 700 1000 Output Total 600 900 Balance 100 100 Intake: IV 700 Intake, IV Titration 1000 Amount Lactated Ringers 1,000 ml 1000 @ 125 mls/hr IV .Q8H [facility] Rx#:[id number] Output: Urine 100 900 Uretheral (Nixon) 500 Estimated Blood Loss 500 Other: Voiding Method Indwelling Catheter Indwelling Catheter - Exam Lungs: bilateral: normal Chest: Normal S1, Normal S2 Extremities: Present: normal Abdomen: Present: normal appearance, soft. Absent: distention, tenderness Incision: Present: normal, dry, intact Uterus: Present: normal, firm - Labs Labs: Abnormal Lab Results - Last 24 Hours (Table) 01/06/18 01/07/18 Range/Units 13:45 06:57 WBC 11.7 H 12.0 H (4.0-11.0) k/uL Hgb 10.7 L (11.4-16.0) gm/dL Hct 32.1 L (34.0-46.0) % MCV 77.9 L 79.8 L (80.0-100.0) fL RDW 15.6 H (11.5-15.5) % Neutrophils # 8.0 H (1.3-7.7) k/uL
[2018-01-07] MEDS: SENNOSIDES-DOCUSATE SODIUM 1 EACH TAB PO SCH ×2 (08:15→20:06)
[2018-01-07] MEDS: LACTATED RINGERS 1,000 ML IV SCH ×2 (20:46→22:25)
[2018-01-07] MEDS: OXYTOCIN 20 UNITS/1000 ML NS 1,000 ML IV SCH (20:47)
[2018-01-08] MEDS: KETOROLAC 30 MG/ML 1 ML VIAL IVP SCH (01:06)
--- NOTE | 2018-01-08 07:08 | P.PNOBGPC ---
Subjective - Subjective Principal diagnosis: Postop day 2 Interval history: Doing very well. Involuting, voiding, tolerating her diet, and passing flatus. Patient reports: Reports appetite normal, Reports voiding normally, Reports pain well controlled, Reports ambulating normally [place]: doing well Objective - Vital Signs Latest vital signs: Vital Signs Temp Pulse Pulse Resp BP Pulse Ox 01/07/18 23:54 97.7 F 68 18 128/77 01/07/18 23:53 97 100 18 01/07/18 20:00 98.4 F 100 18 144/88 100 01/07/18 16:00 97.8 F 76 20 105/57 98 01/07/18 12:00 98.4 F 83 20 102/64 98 01/07/18 08:00 98.2 F 86 20 116/70 100 Intake and Output 01/07/18 01/08/18 01/08/18 22:59 06:59 14:59 Other: Voiding Method Toilet Toilet # Voids 1 - Exam Lungs: bilateral: normal Chest: Normal S1, Normal S2 Extremities: Present: normal Abdomen: Present: normal appearance, soft. Absent: distention, tenderness Incision: Present: normal, dry, intact Uterus: Present: normal, firm - Labs Labs: Abnormal Lab Results - Last 24 Hours (Table) 01/07/18 Range/Units 06:57 WBC 12.0 H (4.0-11.0) k/uL Hgb 10.7 L (11.4-16.0) gm/dL Hct 32.1 L (34.0-46.0) % MCV 79.8 L (80.0-100.0) fL Neutrophils # 8.0 H (1.3-7.7) k/uL
[2018-01-08] MEDS: SENNOSIDES-DOCUSATE SODIUM 1 EACH TAB PO SCH ×2 (11:11→20:00)
[2018-01-08] MEDS: IBUPROFEN 600 MG TAB PO PRN ×2 (11:11→20:00)
[2018-01-08 16:29] VITALS: RESP 16
[2018-01-09] MEDS: IBUPROFEN 600 MG TAB PO PRN (08:19)
[2018-01-09] MEDS: SENNOSIDES-DOCUSATE SODIUM 1 EACH TAB PO SCH (08:20)
[2018-01-09 08:52] VITALS: BP 125/75; PULSE 72; TEMP 98.2
--- NOTE | 2018-01-09 08:56 | P.DS ---
Providers Date of admission: 01/06/18 13:26 Expected date of discharge: 01/09/18 Attending physician: Eusebia Hubbard Primary care physician: Eusebia Hubbard [facility] Course: This is a 22-year-old female 1 para 0 at 38-2/7 weeks who presented to labor and delivery with spontaneous rupture of membranes. She had some nonreassuring heart tones and underwent a primary low transverse section on 01/06/2018 for delivery of a viable female with scores of 8 at 1 minute and 9 at 5 minutes and infant weight of 6 lbs. 11 oz. Her postoperative course has been uncomplicated. She is bottlefeeding. Lochia is decreasing. Pain is fairly well controlled with ibuprofen. Vital signs are stable. Abdomen is soft with positive bowel sounds 4. Incision is clean dry and intact. Extremities show negative Homans. Impression is status post primary low transverse section postoperative day #3. Plan is to discharge home today. Routine postoperative instructions are given. She is advised follow-up in the office in approximately 1 week for a postoperative check and in 6 weeks for a check. She is advised to call the office if she has any further questions or concerns prior to her appointment time. She will be given a prescription for ibuprofen to go home with. Procedures: Primary low transverse section on 01/06/2018 Patient Condition at Discharge: Stable Plan - Discharge Summary Discharge Rx Participant: No New Discharge Prescriptions: New Ibuprofen [Motrin] 600 mg PO Q6HR PRN #60 tab PRN Reason: Mild Pain Or Fever >= 100.5 Discharge Medication List Ibuprofen [Motrin] 600 mg PO Q6HR PRN #60 tab 01/09/18 [Rx] Follow up Appointment(s)/Referral(s): Eusebia Hubbard DO [Primary Care Provider] - 1 Week Activity/Diet/Wound Care/Special Instructions: Instructions 1. Do not begin any exercise program for 3 weeks. 2. Do not resume sexual relations for 3 weeks or longer if uncomfortable. 3. You may take tub baths or showers at any time. 4. You may use tampons if desired after 3 weeks. 5. Keep the area of episiotomy (stitches) clean and dry. 6. If you are not nursing, wear a good fitting, supportive bra during the day and limit fluid intake for at least 1 week to prevent breast engorgement. 7. Call the office, [phone], within the next week to make appointment for your 6 week checkup if it has not already been made. 8. Report any of the following occurrences to the doctor promptly: a. Heavy, excessive bleeding b. Chills, fever c. Burning or frequency of urination d. Pain or redness and breasts if nursing e. Increasing pain or swelling in episiotomy (stitches). In addition to the above instructions, the following additional should be followed: 1. No heavy lifting or straining (exercising) until after 6 week checkup. 2. Keep abdominal incision clean and dry: You may wear a dressing if more comfortable. 3. Make office appointment for 10 days after going home or as instructed by her doctor. Discharge Disposition: HOME SELF-CARE
== END 2018-01-09 11:45 | disposition home or self-care (01) | DRG 766 ==
LOC: FBPOP 13:05 → 4FBP 13:26
PROVIDERS: ADMIT Obstetrics & Gynecology; ATTEND Obstetrics & Gynecology
PROC: 00HU33Z Insertion of Infusion Device into Spinal Canal, Percutaneous Approach (ICD-10-PCS; 2018-01-06)
PROC: 3E0R3BZ Introduction of Anesthetic Agent into Spinal Canal, Percutaneous Approach (ICD-10-PCS; 2018-01-06)
PROC: 10D00Z1 Extraction of Products of Conception, Low, Open Approach (ICD-10-PCS; principal; 2018-01-06 20:17)
DX: O42.02 Full-term premature rupture of membranes, onset of labor within 24 hours of rupture (principal); Z3A.38 38 weeks gestation of pregnancy; Z37.0 Single live birth; O76 Abnormality in fetal heart rate and rhythm complicating labor and delivery; O62.1 Secondary uterine inertia; O99.02 Anemia complicating childbirth
CPT/HCPCS: 59025; 80306; 84112; 85025; 88307; 99213

== ENCOUNTER 2018-09-15 20:48 | Emergency (ER) | payer BC ==
[2018-09-15 21:02] VITALS: BP 110/77; PULSE 75; RESP 16; TEMP 98.9
--- NOTE | 2018-09-15 22:07 | ED ---
General Adult HPI - General Chief complaint: ENT Stated complaint: Ear pain Source: patient, RN notes reviewed, old records reviewed Mode of arrival: ambulatory Limitations: no limitations - History of Present Illness Initial comments: 23-year-old female patient with no pertinent past medical history presents to ED with 3 days of left ear pain. Patient denies all other complaints. Patient denies cough, congestion, nausea vomiting diarrhea, fever chills, shortness of breath. Patient states that she cannot be because she is currently on her menses. Systemic: Pt denies fatigue, myalgia, fever/chills, rash. Pt denies weakness, night sweats, weight loss. Neuro: Pt denies headache, visual disturbances, syncope or pre-syncope. HEENT: Pt denies ocular discharge or irritation, rhinorrhea, pharyngitis or notable lymphadenopathy. Cardiopulmonary: Pt denies chest pain, SOB, heart palpitations, dyspnea on exertion. Abdominal/GI: Pt denies abdominal pain, n/v/d. : Pt denies dysuria, burning w/ urination, frequency/urgency. Denies new onset urinary or bowel incontinence. MSK: Pt denies myalgia, loss of strength or function in extremities. Neuro: Pt denies new onset weakness, paresthesias. - Related Data Previous Rx's Medication Instructions Recorded Amoxicillin 1,000 mg PO Q8HR 10 Days #60 09/15/18 capsule Allergies Allergy/AdvReac Type Severity Reaction Status Date / Time No Known Allergies Allergy Verified 09/15/18 21:02 Review of Systems ROS Statement: Those systems with pertinent positive or pertinent negative responses have been documented in the HPI. ROS Other: All systems not noted in ROS Statement are negative. Past Medical History Past Medical History: No Reported History Additional Past Medical History / Comment(s): anemia History of Any Multi-Drug Resistant Organisms: None Reported Past Surgical History: Ear Surgery Additional Past Surgical History / Comment(s): LEFT EYE PROBLEM, PE EARS Past Anesthesia/Blood Transfusion Reactions: No Reported Reaction Past Psychological History: No Psychological Hx Reported Smoking Status: Never smoker Past Alcohol Use History: None Reported Past Drug Use History: None Reported - Past Family History Mother History Unknown: Yes General Exam - General Exam Comments Initial Comments: Constitutional: NAD, AOX3, Pt has pleasant affect. HEENT: NC/AT, trachea midline, neck supple, no lymphadenopathy. Posterior pharynx non erythematous, without exudates. External ears appear normal, without discharge. Left tympanic membrane mildly erythematous without bulging, perforation. Right tympanic membrane nonerythematous, pale Guy, no bulging, no perforation. Mucous membranes moist. Eyes PERRLA, EOM intact. There is no scleral icterus. No pallor noted. Cardiopulmonary: RRR, no murmurs, rubs or gallops, no JVD noted. Lungs CTAB in anterior and posterior dickens. No peripheral edema. Abdominal exam: Abdomen soft and non-distended. Abdomen non-tender to palpation in all 4 quadrants. Bowel sounds active in LLQ. No hepatosplenomegaly. No ecchymosis Neuro: CN II-XII grossly intact. No nuchal rigidity. MSK: No posterior calf tenderness bilaterally, homans sign negative bilaterally. Posterior tibialis and radial pulse +2 bilaterally. Sensation intact in upper and lower extremities. Full active ROM in upper and lower extremities, 5/5 stregnth. Limitations: no limitations Course Vital Signs 09/15/18 20:59 Temperature 98.9 F Pulse Rate 75 Respiratory 16 Rate Blood Pressure 110/77 O2 Sat by Pulse 99 Oximetry Medical Decision Making - Medical Decision Making 23-year-old female patient with no pertinent past medical history presents to ED with 3 days of left ear pain. Patient denies all other complaints. Physical exam displayed left otitis media. Patient to be treated for left otitis media with amoxicillin. Patient to follow up with primary care provider in 1-2 days. Patient to return to ED if new signs or symptoms develop or condition worsens in any way. Case discussed with Dr. Balbuena. Disposition Clinical Impression: Otitis media Disposition: HOME SELF-CARE Condition: Good Instructions: Earache (ED) Additional Instructions: Patient to adhere to previously discussed treatment plan and will take medication(s) as directed. Patient to follow up with PCP in 1-2 days. Patient to return to ED if symptoms do not improve. Prescriptions: Amoxicillin 1,000 mg PO Q8HR 10 Days #60 capsule Is patient prescribed a controlled substance at d/c from ED?: No Referrals: None,Stated [Primary Care Provider] - 1-2 days Time of Disposition: 22:06
== END 2018-09-15 22:12 | disposition home or self-care (01) ==
LOC: EC 20:48
DX: H66.92 Otitis media, unspecified, left ear (principal); Z98.890 Other specified postprocedural states
CPT/HCPCS: 99283

== ENCOUNTER → 2019-05-01 | Outpatient (CLI) | payer BC ==
--- NOTE | 2019-05-01 10:22 | MR ---
EXAMINATION TYPE: MR knee LT wo con DATE OF EXAM: 05/01/2019 COMPARISON: Outside x-ray dated 04/18/2019 HISTORY: L knee pain TECHNIQUE: Multiplanar, multisequence imaging of the left knee is performed without IV contrast. FINDINGS: There is mild narrowing the medial compartment of the knee joint with no erosive change. Pa tellofemoral joint maintained. Anterior cruciate and posterior cruciate ligaments intact. Medial collateral and lateral collateral l igaments intact. There is a para meniscal cyst along the anterior horn of the lateral meniscus with a horizontal cleav age tear involving the anterior horn body and junction of the posterior horn. There is an oblique tear of the posterior horn medial meniscus. Patellar and quadriceps tendons are intact. Patellar cartilage is maintained. Trace amount of fluid i n the suprapatellar bursa. IMPRESSION: 1. Para meniscal cyst along the lateral compartment of the knee with a horizontal cleavage tear of th e anterior horn and body of the lateral meniscus extending to the junction of the posterior horn. 2. Oblique tear posterior horn medial meniscus.
== END | disposition home or self-care (01) ==
LOC: RADMRIMAIN 09:10
PROVIDERS: ATTEND Orthopaedic Surgery
DX: S83.282A Other tear of lateral meniscus, current injury, left knee, initial encounter (principal); S83.242A Other tear of medial meniscus, current injury, left knee, initial encounter

== ENCOUNTER → 2019-05-14 | Outpatient (CLI) | payer BC ==
[2019-05-14 14:59] LABS: Basophils % (A) 0 %; Eosinophils # (A) 0.1 k/uL (0-0.7); Eosinophils % (A) 1 %; HCT 39.5 % (34.0-46.0); Lymphocytes # (A) 3.6 k/uL (1.0-4.8); Lymphocytes % (A) 36 %; MCH 24.8 pg (25.0-35.0); MCHC 32.8 g/dL (31.0-37.0); MCV 75.7 fL (80.0-100.0); Mean Platelet Volume 7.8; Microcytosis Slight; Monocytes # (A) 0.4 k/uL (0-1.0); Monocytes % (A) 4 %; Neutrophils # (A) 5.8 k/uL (1.3-7.7); Neutrophils % (A) 57 %; Platelet Count 272 k/uL (150-450); RBC 5.22 m/uL (3.80-5.40); RDW 14.5 % (11.5-15.5); WBC 10.1 k/uL (3.8-10.6)
[2019-05-14 15:05] LABS: Potassium 4.4 mmol/L (3.5-5.1)
== END | disposition home or self-care (01) ==
LOC: LABPAT 14:12
PROVIDERS: ATTEND Orthopaedic Surgery
DX: Z01.812 Encounter for preprocedural laboratory examination (principal); M23.92 Unspecified internal derangement of left knee; R35.0 Frequency of micturition
CPT/HCPCS: 80051; 81025; 85025

== ENCOUNTER 2019-05-17 09:24 | Day surgery (SDC) | payer BC, OTHER ==
[2019-05-13 13:24] VITALS: BMI 32.5
--- NOTE | 2019-05-16 10:05 | HP ---
HISTORY AND PHYSICAL CHIEF COMPLAINT: Left knee pain. HISTORY OF PRESENT ILLNESS: The patient is a 24-year-old female who presents with a one year history of left knee pain. She cannot recall specific injury. It has increased over the past 4 months. She notes posterior and lateral pain with prolonged walking and standing. She notes giving way and pain at night. She notes this does significantly limit her. PAST MEDICAL HISTORY: Negative. PAST SURGICAL HISTORY: Negative. CURRENT MEDICATIONS: None. ALLERGIES: She denies drug allergies. FAMILY HISTORY: Family history is noncontributory. SOCIAL HISTORY: Negative for current tobacco or alcohol use. REVIEW OF SYSTEMS: Sixteen-point review of systems otherwise reviewed and is noncontributory. PHYSICAL EXAMINATION: On examination, the patient is approximately 5 feet 4 inches, 190 pounds of endomorphic habitus. HEENT exam is nonfocal. Neck is supple. She has painless passive motion the left hip. Straight leg raise is negative. Active motion left knee -4 to 140 degrees of flexion. She is tender about the lateral joint line. Collaterals are stable, Nathaniel is negative, Ricarda's elicits lateral pain. Her distal neurovascular exam otherwise appears intact in the left lower extremity. MRI report left knee from 05/01/2019 shows a lateral meniscal tear along with an associated parameniscal cyst. There is also a posterior medial meniscal tear. IMPRESSION: Internal derangement left knee with symptomatic lateral meniscal tear. RECOMMENDATIONS: I talked to the patient at length regarding her condition along with treatment options. At this point, she is having significant pain and mechanical symptoms that limit her. After thorough discussion of the options, she opts to proceed with surgery. We will plan to proceed with arthroscopic evaluation with possible partial lateral meniscectomy. Risks and benefits were discussed at length in layman's terms. MMODL / IJN: [id number] /
[~2019-05-17 09:24] MED LIST: DEXAMETHASONE SOD PHOSPHATE 10 MG/ML 1 ML VIAL IV ONE; LACTATED RINGERS 1,000 ML IV SCH; MIDAZOLAM 2 MG/2 ML VIAL IV PRN; ONDANSETRON 4 MG/2 ML VIAL IVP ONE
[2019-05-17 09:54] VITALS: RESP 16
[2019-05-17] MEDS ORDERED: LIDOCAINE 1% 20 ML VIAL (10MG/ML) FOR IV START INTRADERMA ONE (10:09)
[2019-05-17] MEDS ORDERED: fentaNYL (PF) 50 MCG/ML 2 ML AMP ONE (11:40)
[2019-05-17] MEDS ORDERED: MIDAZOLAM 2 MG/2 ML VIAL ONE (11:40)
[2019-05-17] MEDS ORDERED: PROPOFOL 10 MG/ML 20 ML VIAL IV ONE (11:40)
[2019-05-17] MEDS ORDERED: LIDOCAINE 1% INJ 10MG/ML (20 ML MDV) ONE (11:40)
[2019-05-17] MEDS ORDERED: KETOROLAC 30 MG/ML 1 ML VIAL ONE (11:40)
[2019-05-17] MEDS ORDERED: HYDROmorphone (PF) 1 MG/ML ONE (11:40)
--- NOTE | 2019-05-17 12:17 | P.OP ---
Date of Procedure: 05/17/19 Preoperative Diagnosis: Left knee internal derangement Postoperative Diagnosis: Left knee middle one third lateral meniscal tear Procedure(s) Performed: Left knee arthroscopic partial lateral meniscectomy Anesthesia: TRENTONA Surgeon: Darien Zhou Estimated Blood Loss (ml): 10 Pathology: none sent Condition: stable Disposition: PACU Indications for Procedure: The patient's a 24-year-old female presents with left knee pain and mechanical symptoms despite conservative measures. A discussion of the risks and benefits of operative intervention versus continued conservative measures was made with patient. She opted to proceed with surgery. Operative risks to include infection, neurovascular injury, development of blood clots, possible incomplete resolution of symptoms, possible worsening symptoms and need for subsequent procedures was discussed. Informed consent was obtained. Operative Findings: As below Description of Procedure: The patient was brought to the operating room, and after induction of general anesthesia examined the left knee. Collaterals were stable, Nathaniel was negative, and posterior drawer was negative. The left lower extremity was prepped and draped in a normal fashion. A superior lateral portal was made through a 3 mm skin incision superior and lateral to the patella. This was used for outflow. A lateral portal was made through a 5 mm vertical skin incision lateral to the patella tendon above the joint line. Diagnostic arthroscopy was performed. On inspection of the medial compartment, the medial meniscus was stable and intact. No significant cartilage damage was noted. On inspection of the notch, the anterior cruciate ligament appeared to be intact. On inspection of the lateral compartment a radial tear involving the middle one third was noted in the white-white junction. This was debrided back to stable base with straight baskets and a motorized shaver. The remaining lateral meniscus was stable and intact. No significant degenerative changes were noted involving the lateral compartment. On inspection of the patellofemoral articulation, minimal chondral fibrillation was noted. The gutters were clear debris. The knee was then thoroughly irrigated. The portals were closed with Steri-Strips. A sterile dressing was applied in addition to a compression stocking. The patient was awoken from general anesthesia and transferred to recovery room in good condition. Blood loss was estimated at 10 mL. No complications were incurred.
[2019-05-17 12:28] VITALS: TEMP 97
[2019-05-17] MEDS: HYDROmorphone 0.5 MG/0.5 ML SYRINGE IVP PRN ×2 (12:48→12:54)
[2019-05-17] MEDS ORDERED: HYDROcodone/APAP 5-325MG 1 EACH TAB PO ONE (13:39)
[2019-05-17 14:11] VITALS: BP 112/68; PULSE 83
== END 2019-05-17 14:46 | disposition home or self-care (01) ==
LOC: OR 09:24
PROVIDERS: ATTEND Orthopaedic Surgery
DX: S83.282A Other tear of lateral meniscus, current injury, left knee, initial encounter (principal); X58.XXXA Exposure to other specified factors, initial encounter
CPT/HCPCS: 29881; 81025; J2250; J1100; J0690; J2405; J2001; J3010; J1885; J1170 ×2; J2704

== ENCOUNTER 2021-01-07 10:12 | Emergency (ER) | payer BC, OTHER ==
[2021-01-07 10:25] VITALS: RESP 18
--- NOTE | 2021-01-07 11:39 | ED ---
Female Urogenital HPI - General Chief complaint: Vaginal Bleeding Stated complaint: Cramping,Bleeding, newly preg Time Seen by Provider: 01/07/21 10:26 Source: patient, RN notes reviewed Mode of arrival: ambulatory Limitations: no limitations - History of Present Illness Initial comments: 25-year-old female presents emergency Department chief complaint of vaginal bleeding in . Patient states she found that she is days ago states that she started spotting last night. Patient is A0 states that she seen Dr. Hubbard in the past. She has mild cramping no other severe pain denies any nausea vomiting diarrhea constipation dysuria hematuria Last Menstrual Period: 11/30/20 - Related Data Home Medications Medication Instructions Recorded Confirmed No Known Home Medications 01/07/21 01/07/21 Allergies Allergy/AdvReac Type Severity Reaction Status Date / Time No Known Allergies Allergy Verified 01/07/21 10:45 Review of Systems ROS Statement: Those systems with pertinent positive or pertinent negative responses have been documented in the HPI. ROS Other: All systems not noted in ROS Statement are negative. Past Medical History Past Medical History: No Reported History Additional Past Medical History / Comment(s): anemia History of Any Multi-Drug Resistant Organisms: None Reported Past Surgical History: Ear Surgery, Orthopedic Surgery Additional Past Surgical History / Comment(s): LEFT EYE PROBLEM, 2 set tubes bi l EARS Past Anesthesia/Blood Transfusion Reactions: No Reported Reaction Past Psychological History: No Psychological Hx Reported Past Alcohol Use History: None Reported Past Drug Use History: None Reported - Past Family History Mother History Unknown: Yes General Exam Limitations: no limitations General appearance: alert, in no apparent distress Head exam: Present: atraumatic, normocephalic, normal inspection Eye exam: Present: normal appearance, PERRL, EOMI. Absent: scleral icterus, conjunctival injection, periorbital swelling Respiratory exam: Present: normal lung sounds bilaterally. Absent: respiratory distress, wheezes, rales, rhonchi, stridor Cardiovascular Exam: Present: regular rate, normal rhythm, normal heart sounds. Absent: systolic murmur, diastolic murmur, rubs, gallop, clicks GI/Abdominal exam: Present: soft, normal bowel sounds. Absent: distended, tenderness, guarding, rebound, rigid Course Vital Signs 01/07/21 10:22 Temperature 98.1 F Pulse Rate 82 Respiratory 18 Rate Blood Pressure 106/66 O2 Sat by Pulse 98 Oximetry Medical Decision Making - Medical Decision Making Ultrasound does not reveal intrauterine at this time though patient has early or no localized adnexal pain or tenderness patient may be early gestation versus miscarriage. She will have repeat hCG. - Lab Data Lab Results 01/07/21 01/07/21 01/07/21 Range/Units 11:07 11:07 11:07 HCG, Quant 27862.0 mIU/mL Urine Color Yellow Urine Appearance Cloudy H (Clear) Urine pH 7.5 (5.0-8.0) Ur Specific [place] 1.027 (1.001-1.035) Urine Protein Trace H (Negative) Urine Glucose (UA) Negative (Negative) Urine Ketones Negative (Negative) Urine Blood Moderate H (Negative) Urine Nitrite Negative (Negative) Urine Bilirubin Negative (Negative) Urine Urobilinogen 2.0 (<2.0) mg/dL Ur Leukocyte Esterase Negative (Negative) Urine RBC 2 (0-5) /hpf Urine WBC 2 (0-5) /hpf Ur Squamous Epith Cells 6 H (0-4) /hpf Urine Bacteria Rare H (None) /hpf Urine Mucus Rare H (None) /hpf Blood Type O Positive Blood Type Recheck No Previous Record Bld Type Recheck Status [facility] ONLY Disposition Clinical Impression: Threatened miscarriage in early Disposition: HOME SELF-CARE Condition: Stable Instructions (If sedation given, give patient instructions): Threatened Miscarriage (ED) Additional Instructions: Current hCG is 14,000. Please return to the Emergency Department if symptoms worsen or any other concerns. Is patient prescribed a controlled substance at d/c from ED?: No Referrals: Franklin Gan MD [Primary Care Provider] - 1-2 days Eusebia Hubbard DO [Doctor of Osteopathic Medicine] - 1-2 days Time of Disposition: 12:18
[2021-01-07 11:40] LABS: Appearance,Urine Cloudy (Clear); Bacteria,Urine Rare /hpf; Bilirubin,Urine Negative (Negative); Blood,Urine Moderate (Negative); Color,Urine Yellow; Glucose,Urine (UA) Negative (Negative); Ketones,Urine Negative (Negative); Leukocyte Esterase,Urine Negative (Negative); Mucus,Urine Rare /hpf; Nitrite,Urine Negative (Negative); PH, Urine 7.5 (5.0-8.0); Protein,Urine Trace (Negative); RBC,Urine 2 /hpf (0-5); Specific Gravity,Urine 1.027 (1.001-1.035); Squamous Epithelial Cell,Urine 6 /hpf (0-4); WBC,Urine 2 /hpf (0-5)
--- NOTE | 2021-01-07 11:53 | US ---
EXAMINATION TYPE: Transabdominal DATE OF EXAM: 01/07/2021 11:33 AM COMPARISON: NONE CLINICAL HISTORY: bleeding. Positive test x 3 days ago. Dark spotting. EXAM PERFORMED: Transabdominal (TA) EXAM MEASUREMENTS: GESTATIONAL AGE / DATING Physician Established: Not yet established Dates by LMP: ( 5 weeks/5 days) EDC: 09/04/2021 Dates by First Scan: No previous this is first scan Dates by Current Scan for: (5 weeks/1 days) EDC: 09/08/2020 MATERNAL ANATOMY Uterus: 8.4 x 7.7 x 5.1 cm Right Ovary: 3.4 x 2.1 x 1.7 cm Left Ovary: 2.9 x 1.7 x 1.6 cm Post CDS / Adnexa: no free fluid Presence of free fluid: no Presence of corpus luteal cyst: right ovary= 2.0 x 1.4 x 1.6 cm Presence of subchorionic bleed: no GESTATION / SURVEY MSD: 1.1 cm (5 weeks/1 days) IUP: Possible GS visualized in endometrial canal Date of LMP: 11/28/2020, Beta HcG (if available): Not available at this time Possible GS visualized in endometrial canal. No YS or CRL seen at this time but could be due to jesse y . Heterogeneous anteverted uterus. Oval 12 x 10 x 10 mm central structure could reflect early gestation al sac. No yolk sac or pole. No free fluid. Both ovaries with possible 2.0 cm corpus luteal cyst right ovary. No extraovarian adnexal masses. IMPRESSION: Findings favored too early to visualize intrauterine . Spontaneous is i n differential and ectopic is not excluded. Serial beta hCG and ultrasound follow-up is adv ised.
[2021-01-07 12:52] VITALS: BP 121/79; PULSE 87; TEMP 99
== END 2021-01-07 12:52 | disposition home or self-care (01) ==
LOC: EC 10:12
DX: O20.0 Threatened abortion (principal); Z3A.01 Less than 8 weeks gestation of pregnancy
CPT/HCPCS: 36415; 76801; 81001; 84702; 86900; 86901; 99284

== ENCOUNTER → 2021-01-09 | Outpatient (CLI) | payer BC, OTHER | END | disposition home or self-care (01) | LOC: LABMAIN 11:16 | PROVIDERS: ATTEND Physician Assistant | DX: Z53.9 Procedure and treatment not carried out, unspecified reason (principal) ==

== ENCOUNTER → 2021-01-13 | Outpatient (CLI) | payer BC, OTHER | END | disposition home or self-care (01) | LOC: LABWHC1 11:09 | PROVIDERS: ATTEND Obstetrics & Gynecology | DX: O20.0 Threatened abortion (principal); Z3A.00 Weeks of gestation of pregnancy not specified | CPT/HCPCS: 36415; 84702 ==

== ENCOUNTER → 2021-01-15 | Outpatient (CLI) | payer BC, OTHER ==
--- NOTE | 2021-01-15 07:56 | US ---
EXAMINATION TYPE: Transabdominal DATE OF EXAM: 01/15/2021 7:42 AM COMPARISON: NONE CLINICAL HISTORY: Z36 follow up. EXAM PERFORMED: Transvaginal (TV) and Transabdominal (TA) EXAM MEASUREMENTS: GESTATIONAL AGE / DATING Physician Established: Not yet established Dates by LMP: LMP unknown Dates by First Scan: Unable to date by previous Dates by Current Scan for: (6 weeks/5 days) EDC: 09-05-21 MATERNAL ANATOMY Uterus: 11.3 x 5.7 x 6.9cm Right Ovary: 2.8 x 2.0 x 1.7cm Left Ovary: obscured by overlying bowel gas Post CDS / Adnexa: wnl Presence of free fluid: no Presence of corpus luteal cyst: 1.7 x 1.6 x 1.6cm Presence of subchorionic bleed: no GESTATION / SURVEY CRL: 0.7cm (6 weeks/5 days) Yolk Sac (normal less than 6mm): 0.3cm Heart Rate: 129 bpm Rhythm: Normal IUP: Viable IUP Date of LMP: unknown IMPRESSION: Single viable intrauterine .
== END | disposition home or self-care (01) ==
LOC: RADUSWWP 07:10
PROVIDERS: ATTEND Obstetrics & Gynecology
DX: O36.80X0 Pregnancy with inconclusive fetal viability, not applicable or unspecified (principal); Z3A.01 Less than 8 weeks gestation of pregnancy
CPT/HCPCS: 76801; 76817

== ENCOUNTER 2021-04-30 22:36 | Outpatient (CLI) | payer BC, OTHER ==
[2021-04-30 23:24] LABS: Amorphous Sediment,Urine Rare /hpf; Appearance,Urine Cloudy (Clear); Bilirubin,Urine Negative (Negative); Blood,Urine Negative (Negative); Color,Urine Yellow; Glucose,Urine (UA) Negative (Negative); Hyaline Casts,Urine 1 /lpf (0-2); Ketones,Urine Negative (Negative); Leukocyte Esterase,Urine Negative (Negative); Mucus,Urine Moderate /hpf; Nitrite,Urine Negative (Negative); Protein,Urine Negative (Negative); RBC,Urine 1 /hpf (0-5); Specific Gravity,Urine 1.016 (1.001-1.035); Squamous Epithelial Cell,Urine 12 /hpf (0-4); Urobilinogen,Urine <2.0 mg/dL (<2.0); WBC,Urine 11 /hpf (0-5)
[2021-05-01 00:03] VITALS: BP 110/68; PULSE 71; RESP 16; TEMP 97.6
--- NOTE | 2021-05-02 12:08 | P.MSEPDOC ---
Presenting Problems - Arrival Data Date of Arrival on Unit: 04/30/21 Time of Arrival on Unit: 23:36 Mode of Transport: Ambulatory - Complaint OB-Reason for Admission/Chief Complaint: Pain Comment: Patient arrives to triage with complaints of right sided flank pain that. started yesterday. Pain is worse with movement. Patient rating pain as a 4/10 with movement. No pain when sitting still Medical History - Information : 2 Para: 1 Term: 1 : 0 Abortions: Spontaneous or Elective: 0 Number of Living Children: 1 - Gestational Age Gestational Age by CARINE (wks/days): 21 Weeks and 5 Days Review of Systems - Review of Systems Constitutional: No problems Breast: No problems ENT: No problems Cardiovascular: No problems Respiratory: No problems Gastrointestinal: No problems Genitourinary: No problems Musculoskeletal: No problems Neurological: No problems Skin: No problems Vital Signs - Temperature Temperature: 97.6 F Temperature Source: Oral - Pulse Right Brachial Pulse Rate: 71 Pulse Assessment Method: Automatic Cuff - Respirations Respiratory Rate: 16 Oxygen Delivery Method: Room Air O2 Sat by Pulse Oximetry: 100 - Blood Pressure Right Arm Blood Pressure: 110/68 Blood Pressure Mean: 82 Blood Pressure Source: Automatic Cuff Medical Screen Scoring - Assessment - Baby A Baseline FHR: 155 Physician Notification - Physician Notified Physician Notified Date: 05/01/21 Physician Notified Time: 23:00 Physician: Eusebia Hubbard Order Received: Yes - Notification Comment Comment: RN spoke with Dr. Hubbard. RN reported that patient has had right sided flank pain. since yesterday, worse with movement. heart tones auscultated at 150-[address] Hubbard would like a urinalysis sent on the patient and if it is wnl patient may be discharged home, with instructions to keep follow up appointment. Patient updated on plan of care. Maternal Triage Index - Non-Urgent/Priority 4 Non-Urgent Priority 4: Yes Criteria Met for Priority 4: right sided flank pain with movement Disposition - Disposition OB Disposition: Discharge to home Discharge Date: 05/01/21 Discharge Time: 23:50 I agree with the RN Medical Screening Exam: Yes Case reviewed; plan agreed upon as documented in EMR&OBIX.: Yes Diagnosis: RELATED CONDITIONS, UNSPECIFIED, SECOND TRIMESTER
== END 2021-04-30 23:50 | disposition home or self-care (01) ==
LOC: FBPOP 22:36
PROVIDERS: ATTEND Obstetrics & Gynecology
DX: O26.892 Other specified pregnancy related conditions, second trimester (principal); R10.9 Unspecified abdominal pain; Z3A.21 21 weeks gestation of pregnancy
CPT/HCPCS: 81001; 99213

== ENCOUNTER 2021-05-03 12:53 | Emergency (ER) | payer BC, OTHER ==
[2021-05-03 13:14] VITALS: RESP 18
[2021-05-03] MEDS ORDERED: ACETAMINOPHEN TAB 500 MG TAB PO STA (13:46)
[2021-05-03 14:35] LABS: Appearance,Urine Cloudy (Clear); Bacteria,Urine Rare /hpf; Bilirubin,Urine Negative (Negative); Blood,Urine Negative (Negative); Color,Urine Yellow; Glucose,Urine (UA) Negative (Negative); Ketones,Urine 4+ (Negative); Leukocyte Esterase,Urine Large (Negative); Mucus,Urine Many /hpf; Nitrite,Urine Negative (Negative); Protein,Urine 1+ (Negative); RBC,Urine 2 /hpf (0-5); Specific Gravity,Urine 1.025 (1.001-1.035); Squamous Epithelial Cell,Urine 48 /hpf (0-4); WBC,Urine 14 /hpf (0-5)
[2021-05-03] MEDS ORDERED: AMOXICILLIN 875 MG TAB PO STA (15:11)
--- NOTE | 2021-05-03 15:12 | ED ---
General Adult HPI - General Chief complaint: ENT Stated complaint: sore throat Time Seen by Provider: 05/03/21 13:24 Source: patient Mode of arrival: ambulatory Limitations: no limitations - History of Present Illness Initial comments: 26-year-old female with a past medical history of anemia currently 22 weeks presents to the emergency room for sore throat. Patient reports she has had a sore throat for 3 days. Denies fevers. Denies difficulty swallowing but states it does hurt to swallow. Patient denies cough or congestion. She also has bilateral ear pain and irritation. Patient denies any abdominal pain, dysuria, vaginal bleeding.Patient has no other complaints at this time including shortness of breath, chest pain, abdominal pain, nausea or vomiting, headache, or visual changes. - Related Data Previous Rx's Medication Instructions Recorded Amoxicillin 875 mg PO Q12HR #20 tablet 05/03/21 Allergies Allergy/AdvReac Type Severity Reaction Status Date / Time No Known Allergies Allergy Verified 05/03/21 13:14 Review of Systems ROS Statement: Those systems with pertinent positive or pertinent negative responses have been documented in the HPI. ROS Other: All systems not noted in ROS Statement are negative. Past Medical History Past Medical History: No Reported History Additional Past Medical History / Comment(s): anemia History of Any Multi-Drug Resistant Organisms: None Reported Past Surgical History: Ear Surgery, Orthopedic Surgery Additional Past Surgical History / Comment(s): LEFT EYE PROBLEM, 2 set tubes danitza EARS Past Anesthesia/Blood Transfusion Reactions: No Reported Reaction Past Psychological History: No Psychological Hx Reported Smoking Status: Never smoker Past Alcohol Use History: None Reported Past Drug Use History: None Reported - Past Family History Mother History Unknown: Yes General Exam Limitations: no limitations General appearance: alert, in no apparent distress Head exam: Present: atraumatic, normocephalic Eye exam: Present: normal appearance, PERRL, EOMI. Absent: scleral icterus ENT exam: Present: mucous membranes moist. Absent: normal oropharynx (Erythematous with mild tonsillar exudates bilaterally. Uvula is midline. Tonsillar pillars are symmetric.) Neck exam: Present: normal inspection, full ROM. Absent: tenderness, meningismus Respiratory exam: Present: normal lung sounds bilaterally. Absent: respiratory distress, wheezes Cardiovascular Exam: Present: regular rate, normal rhythm, normal heart sounds. Absent: systolic murmur, diastolic murmur, rubs, gallop, clicks GI/Abdominal exam: Present: soft, normal bowel sounds. Absent: distended, tenderness, guarding, rebound, rigid Neurological exam: Present: alert Course Vital Signs 05/03/21 13:11 Temperature 100.4 F H Pulse Rate 112 H Respiratory 18 Rate Blood Pressure 131/82 O2 Sat by Pulse 98 Oximetry Medical Decision Making - Medical Decision Making vitals are stable. Patient does have a low-grade fever of 100.4 with a reflexive tachycardia of 112. Was given Tylenol. HPI physical exam as documented. Coronavirus was negative. Strep negative however given erythema with tonsillar states she'll be treated for pharyngitis. Urinalysis was checked and she does have rare bacteria, this will be cultured. However I was concerned about 4+ ketones in her urine and recommended an IV. Patient would prefer this not be done today. She states that she is having drinking as much history as her throat hurts but that with the Tylenol feels better and she will increase her fluids at home. Patient agrees to return here if she cannot increase her intake or she has any other worsening symptoms. She will otherwise follow-up with her doctor. - Lab Data Lab Results 05/03/21 05/03/21 05/03/21 Range/Units 14:08 14:08 14:08 Urine Color Yellow Urine Appearance Cloudy H (Clear) Urine pH 6.0 (5.0-8.0) Ur Specific [place] 1.025 (1.001-1.035) Urine Protein 1+ H (Negative) Urine Glucose (UA) Negative (Negative) Urine Ketones 4+ H (Negative) Urine Blood Negative (Negative) Urine Nitrite Negative (Negative) Urine Bilirubin Negative (Negative) Urine Urobilinogen 3.0 (<2.0) mg/dL Ur Leukocyte Esterase Large H (Negative) Urine RBC 2 (0-5) /hpf Urine WBC 14 H (0-5) /hpf Ur Squamous Epith Cells 48 H (0-4) /hpf Urine Bacteria Rare H (None) /hpf Urine Mucus Many H (None) /hpf Coronavirus (PCR) Not Detected (Not Detectd) Group A Strep Rapid Negative (Negative) Disposition Clinical Impression: Pharyngitis Disposition: HOME SELF-CARE Condition: Good Instructions (If sedation given, give patient instructions): Pharyngitis (ED) Additional Instructions: Take antibiotic as directed. Take Tylenol for pain. Make sure to increase your fluid intake. Follow-up with your doctor in one to 2 days. Return to the emergency room for any worsening symptoms Prescriptions: Amoxicillin 875 mg PO Q12HR #20 tablet Is patient prescribed a controlled substance at d/c from ED?: No Referrals: Franklin Gan MD [Primary Care Provider] - 1-2 days Time of Disposition: 15:11
[2021-05-03 15:52] VITALS: BP 118/79; PULSE 98; TEMP 98
== END 2021-05-03 15:51 | disposition home or self-care (01) ==
LOC: EC 12:53
DX: O99.512 Diseases of the respiratory system complicating pregnancy, second trimester (principal); J02.9 Acute pharyngitis, unspecified; Z3A.22 22 weeks gestation of pregnancy
CPT/HCPCS: 81001; 87081; 87086; 87430; 87635; 99283

== ENCOUNTER 2021-07-07 12:13 | Outpatient (CLI) | payer BC, OTHER ==
[2021-07-07 12:47] VITALS: BP 108/60; PULSE 80; RESP 16; TEMP 97.7
--- NOTE | 2021-07-12 08:39 | P.MSEPDOC ---
Presenting Problems - Arrival Data Date of Arrival on Unit: 07/07/21 Time of Arrival on Unit: 12:16 Mode of Transport: Ambulatory - Complaint OB-Reason for Admission/Chief Complaint: Decreased Movement Medical History - Information : 2 Para: 1 Term: 1 : 0 Abortions: Spontaneous or Elective: 0 Number of Living Children: 1 - Gestational Age Gestational Age by CARINE (wks/days): 31 Weeks and 3 Days Review of Systems - Review of Systems Constitutional: No problems Breast: No problems ENT: No problems Cardiovascular: No problems Respiratory: No problems Gastrointestinal: No problems Genitourinary: No problems Musculoskeletal: No problems Neurological: No problems Skin: No problems Vital Signs - Temperature Temperature: 97.7 F Temperature Source: Oral - Pulse Right Brachial Pulse Rate: 80 Pulse Assessment Method: Automatic Cuff - Respirations Respiratory Rate: 16 Oxygen Delivery Method: Room Air O2 Sat by Pulse Oximetry: 98 - Blood Pressure Right Arm Blood Pressure: 108/60 Blood Pressure Mean: 76 Blood Pressure Source: Automatic Cuff Physician Notification - Physician Notified Physician Notified Date: 07/07/21 Physician Notified Time: 12:34 Physician: Deandre Llamas New Order Received: Yes - Notification Comment Comment: Dr. Llamas in unit and given report on pt c/o, VS. FHTs reviewed per Orders recieved to d/c pt to home. Maternal Triage Index - Maternal Triage Index Presenting for scheduled procedure w/no complaint: No - Stat/Priority 1 Stat Priority 1: No - Urgent/Priority 2 Urgent Priority 2: Yes Provider Notified: Deandre Llamas Provider Notified Time: 12:34 Criteria Met for Priority 2: Decreased movement. Disposition - Disposition OB Disposition: Discharge to home Discharge Date: 07/07/21 Discharge Time: 12:45 I agree with the RN Medical Screening Exam: Yes Case reviewed; plan agreed upon as documented in EMR&OBIX.: Yes Diagnosis: DECREASED MOVEMENTS, THIRD TRIMESTER, UNSP
== END 2021-07-07 12:45 | disposition home or self-care (01) ==
LOC: FBPOP 12:13
PROVIDERS: ATTEND Obstetrics & Gynecology
DX: O36.8130 Decreased fetal movements, third trimester, not applicable or unspecified (principal); Z3A.31 31 weeks gestation of pregnancy
CPT/HCPCS: 59025; 99213

== ENCOUNTER 2021-08-30 05:56 | Inpatient (IN) | payer BC, OTHER ==
[2021-08-25 13:43] VITALS: BMI 40.3
--- NOTE | 2021-08-29 14:49 | P.HPOB ---
History of Present Illness H&P Date: 08/29/21 Chief Complaint: Scheduled repeat section This is a 26 y.o. female, 2, para 1, with an estimated date of confinement of 09/05/2021, estimated gestational age of 39-1/7 weeks, who presents for scheduled repeat section. She has good movement and irregular contractions and pressure. course has been relatively uncomplicated. labs: Chlamydia/GC/Trich-neg Hepatitis B surface antigen-neg RPR-NR Rubella-immune Blood type-O+ Antibody screen-neg Hemoglobin-14 Random glucose-71 1 hr. GTT-97 GBS-neg OB Hx: . History of previous due to distress Community Health Counselor Hx: No hx of STDs Social Hx: Single, works part-time. Review of Systems Constitutional: Denies chills, Denies fever Eyes: denies blurred vision, denies pain Ears, nose, mouth and throat: Denies headache, Denies sore throat Cardiovascular: Denies chest pain, Denies shortness of breath Respiratory: Denies cough Gastrointestinal: Reports abdominal pain (irregular contractions) Genitourinary: Reports pelvic pain, Reports Musculoskeletal: Reports low back pain Integumentary: Denies pruritus, Denies rash Neurological: Denies numbness, Denies weakness Psychiatric: Reports depression Past Medical History Additional Past Medical History / Comment(s): anemia. lt eye legally blind History of Any Multi-Drug Resistant Organisms: None Reported Past Surgical History: Section, Ear Surgery, Orthopedic Surgery Additional Past Surgical History / Comment(s): 2 set tubes danitza EARS. left knee surgery Past Anesthesia/Blood Transfusion Reactions: No Reported Reaction Past Psychological History: Depression Smoking Status: Never smoker Past Alcohol Use History: None Reported Past Drug Use History: None Reported - Past Family History Mother History Unknown: Yes Father Family Medical History: Hypertension Medications and Allergies Home Medications Medication Instructions Recorded Confirmed Type Pnv No.95/Ferrous Fum/Folic AC 1 tab PO ONCE 07/07/21 08/30/21 History [ Multivitamin Tablet] Allergies Allergy/AdvReac Type Severity Reaction Status Date / Time No Known Allergies Allergy Verified 08/25/21 13:38 Exam Osteopathic Statement: *. No significant issues noted on an osteopathic structural exam other than those noted in the History and Physical/Consult. HEENT: within normal limits Heart: regular rate and rhythm Lungs: clear to auscultation bilaterally Abdomen: , FH=40 cm Cervix: 1.5 cm/60%/-2 heart tones: 140's by doppler Extremities: neg. Anna's Results Result Diagrams: 08/30/21 06:31 Assessment and Plan (1) 39 weeks gestation of Current Visit: No Status: Acute Code(s): Z3A.39 - 39 WEEKS GESTATION OF SNOMED Code(s): 69042512 (2) Previous delivery affecting Current Visit: No Status: Acute Code(s): O34.219 - MATERNAL CARE FOR UNSP TY PE SCAR FROM PREVIOUS DEL SNOMED Code(s): 223999398 Plan: Proceed with repeat section. I have discussed the risks, benefits, and alternative therapies for the above- mentioned procedure and for both sedation/anesthesia as well as necessary blood products administration, if indicated, as they pertain to this patient. The p atient has indicated her understanding and acceptance of the risks and procedures discussed.
[2021-08-30] MEDS ORDERED: CITRIC ACID-SODIUM CITRATE 15 ML CUP PO ONE (06:14)
[2021-08-30] MEDS ORDERED: LACTATED RINGERS 1,000 ML IV ONE (06:14)
[2021-08-30] MEDS ORDERED: LIDOCAINE 1% (10MG/ML) FOR IV START INTRADERMA PRN (06:14)
[2021-08-30 06:46] LABS: Basophils % (A) 0 %; Eosinophils % (A) 0 %; HCT 37.6 % (34.0-46.0); HGB 12.1 gm/dL (11.4-16.0); Lymphocytes # (A) 2.7 k/uL (1.0-4.8); Lymphocytes % (A) 29 %; MCH 26.5 pg (25.0-35.0); MCHC 32.2 g/dL (31.0-37.0); MCV 82.4 fL (80.0-100.0); Mean Platelet Volume 9.1; Monocytes # (A) 0.6 k/uL (0-1.0); Monocytes % (A) 7 %; Neutrophils # (A) 5.9 k/uL (1.3-7.7); Neutrophils % (A) 62 %; Platelet Count 239 k/uL (150-450); RBC 4.56 m/uL (3.80-5.40); RDW 14.4 % (11.5-15.5); WBC 9.5 k/uL (3.8-10.6)
[2021-08-30] MEDS: LACTATED RINGERS 1,000 ML IV SCH ×2 (07:54→14:32)
[2021-08-30] MEDS ORDERED: PHENYLEPHRINE-0.9% NACL SYG 1,000 MCG/10 ML SYRINGE ONE (08:09)
[2021-08-30] MEDS ORDERED: NALBUPHINE 10 MG/ML (1 ML AMP) ONE (08:09)
[2021-08-30] MEDS ORDERED: MORPHINE SULFATE (PF) 0.3 MG/0.3 ML SYR ONE (08:09)
[2021-08-30] MEDS ORDERED: KETOROLAC 30 MG/ML 1 ML VIAL ONE (08:09)
[2021-08-30] MEDS ORDERED: OXYTOCIN 10 UNIT/ML 1 ML VIAL ONE (08:09)
[2021-08-30] MEDS ORDERED: ONDANSETRON 4 MG/2 ML VIAL ONE (08:09)
--- NOTE | 2021-08-30 08:53 | P.OP ---
Date of Procedure: 08/30/21 Preoperative Diagnosis: 1. Intrauterine at 39 and one sevenths weeks. 2. History of previous section. Postoperative Diagnosis: Same Procedure(s) Performed: Repeat low transverse section Anesthesia: spinal (Duramorph) Surgeon: Eusebia Hubbard Silviculture Forester #1: Deandre Llamas Estimated Blood Loss (ml): 200 Pathology: none sent Condition: stable Disposition: floor Indications for Procedure: This is a 26-year-old female 2 para 1 at 39 and one sevenths weeks who presented for scheduled repeat section. She admits to good movement. She denies any regular contractions. She declines vaginal after . I have discussed the risks, benefits, and alternative therapies for the above- mentioned procedure and for both sedation/anesthesia as well as necessary blood products administration, if indicated, as they pertain to this patient. The patient has indicated her understanding and acceptance of the risks and procedures discussed. Operative Findings: A viable male infant is noted in the vertex presentation with nuchal cord 1 and scores of 9 at 1 minute and 9 at 5 minutes and weight of 7 lbs. 4 oz. Normal uterus tubes and ovaries are noted. Description of Procedure: The patient is taken to the operating room where she is placed in the dorsal supine position with leftward tilt after spinal Duramorph anesthesia is given. She is prepped and draped in the normal sterile fashion. Skin was tested and found to be adequately anesthetized. A Pfannenstiel skin incision was made with a scalpel through the previous laparotomy scar. A second knife was used to carry the incision down to the underlying layer of fascia. The fascia was nicked in the midline with a scalpel and then extended laterally bilaterally with Burger scissors. The anterior lip of the fascia was grasped with 2 Rudy clamps and then dissected off the underlying rectus muscle in the midline with Burger scissors. The inferior aspect of the fascial incision was grasped with 2 Rudy clamps and dissected off the underlying rectus muscle and the midline with Burger scissors. Next the peritoneum layer was tented up with 2 hemostats and then entered sharply with the scalpel. The incision is extended superiorly and inferiorly with Metzenbaum scissors. Next a DeLee retractor is placed. The vesicouterine peritoneum is entered sharply with Metzenbaum scissors and extended laterally bilaterally with Metzenbaum scissors and then the bladder flap is pushed inferiorly. The lower uterine segment is incised in transverse fashion with the scalpel and then bluntly entered with a hemostat. Clear fluid is noted. The incision was then extended laterally bilaterally with 2 fingers. Next the 's head is delivered through the incision. Nose and mouth are bulb suctioned. Nuchal cord times one was reduced around the 's head. The remainder of the is easily delivered and placed on mother's abdomen. Cord is clamped and cut. Infant is taken to warmer by nursing staff. Cord blood was obtained secondary to O+ blood type. Uterine fundus is gently massaged and placenta is delivered manually. Uterus is exteriorized and cleared of all clots and debris. Uterine incision is closed with 0 Vicryl suture in a running locked fashion. A second layer of 0 Vicryl suture is used in a running fashion for hemostasis. Once adequate hemostasis as assured, the vesicouterine peritoneum is reapproximated with 2-0 Vicryl suture in a running fashion. Posterior cul-de-sac is suctioned of all clots and debris. Uterus is returned to the abdomen. Incision is noted to be hemostatic. Peritoneal layer is closed with 0 Vicryl suture in a running fashion. Muscle layer is reapproximated with 0 Vicryl suture in interrupted fashion. Fascia layer is then closed with 0 PDS suture with 2 sutures meeting in the midline and the knots buried in either side and in the midline. The subcutaneous tissue was then closed with 2-0 Vicryl suture. Skin layer was then closed with baldo. All sponge and needle counts are correct. The patient is taken to recovery room in stable condition.
[2021-08-30] MEDS ORDERED: diphenhydrAMINE 25 MG CAP PO PRN (09:00)
[2021-08-30] MEDS ORDERED: MORPHINE SULFATE 4MG/4ML SYRG IVP PRN (09:00)
[2021-08-30] MEDS ORDERED: LANOLIN CREAM 5 GM TUBE TOPICAL PRN (09:00)
[2021-08-30] MEDS ORDERED: ZOLPIDEM 5 MG TAB PO PRN (09:00)
[2021-08-30] MEDS ORDERED: SIMETHICONE 80 MG CHEWABLE PO PRN (09:00)
[2021-08-30] MEDS ORDERED: ONDANSETRON 4 MG/2 ML VIAL IVP PRN (09:00)
[2021-08-30] MEDS ORDERED: diphenhydrAMINE 50 MG CAP PO PRN (09:00)
[2021-08-30] MEDS ORDERED: METOCLOPRAMIDE 5 MG/ML 2 ML VIAL IVP PRN (09:00)
[2021-08-30] MEDS ORDERED: NALOXONE 0.4 MG/ML 1 ML VIAL IV PRN (09:00)
[2021-08-30] MEDS ORDERED: diphenhydrAMINE 50 MG/ML 1 ML VIAL IVP PRN ×2 (09:00)
[2021-08-30] MEDS ORDERED: MORPHINE SULFATE 2 MG/ML SYRINGE IVP PRN (09:00)
[2021-08-30] MEDS ORDERED: OXYTOCIN 30 UNITS/500 ML NS 30 UNIT in SALINE 1 500ML.BAG IV SCH (09:00)
[2021-08-30] MEDS ORDERED: MORPHINE SULFATE 4 MG/ML SYRINGE IVP PRN (09:13)
[2021-08-30] MEDS: ACETAMINOPHEN TAB 500 MG TAB PO SCH ×2 (11:20→17:39)
[2021-08-30] MEDS: KETOROLAC 30 MG/ML 1 ML VIAL IVP SCH ×2 (16:50→23:14)
[2021-08-30] MEDS: IBUPROFEN 600 MG TAB PO SCH (16:51)
[2021-08-30 20:27] VITALS: RESP 16
[2021-08-31 07:10] LABS: Basophils % (A) 0 %; Eosinophils % (A) 0 %; HGB 11.2 gm/dL (11.4-16.0); Hypochromasia Slight; Lymphocytes # (A) 2.2 k/uL (1.0-4.8); Lymphocytes % (A) 26 %; MCH 26.9 pg (25.0-35.0); MCV 84.1 fL (80.0-100.0); Mean Platelet Volume 9.1; Monocytes # (A) 0.5 k/uL (0-1.0); Monocytes % (A) 6 %; Neutrophils # (A) 5.6 k/uL (1.3-7.7); Neutrophils % (A) 66 %; Platelet Count 181 k/uL (150-450); RBC 4.17 m/uL (3.80-5.40); RDW 14.6 % (11.5-15.5); WBC 8.5 k/uL (3.8-10.6)
--- NOTE | 2021-08-31 08:03 | P.PNOBGPC ---
Subjective - Subjective Principal diagnosis: status post repeat section postoperative day #1 Interval history: patient is doing well. She is bottle feeding. Lochia is decreasing. Pain is well-controlled. She is passing flatus but no bowel movement yet. Patient reports: Reports appetite normal, Reports voiding normally, Reports pain well controlled, Reports ambulating normally : doing well, bottle feeding Objective - Vital Signs Latest vital signs: Vital Signs Temp Pulse Resp BP Pulse Ox 08/31/21 04:00 98.0 F 90 16 110/60 08/31/21 00:00 98.1 F 98 16 107/69 08/30/21 20:00 98.1 F 86 16 110/64 08/30/21 16:00 97.9 F 88 18 112/66 99 08/30/21 12:00 98.0 F 87 18 110/64 98 08/30/21 10:58 97.5 F L 81 16 113/58 97 08/30/21 10:20 74 16 91/46 98 08/30/21 09:58 70 16 91/53 97 08/30/21 09:43 71 16 92/53 98 08/30/21 09:28 82 16 99/55 98 08/30/21 09:13 92 15 101/58 98 08/30/21 08:58 96 F L 90 15 109/54 99 Intake and Output 08/30/21 08/31/21 08/31/21 22:59 06:59 14:59 Output Total 1400 400 Balance -1400 -400 Output: Urine 1400 400 Uretheral (Nixon) 500 - Exam Extremities: Present: normal. Absent: tenderness Abdomen: Present: normal appearance, soft (positive bowel sounds times). Absent: distention, tenderness Incision: Present: normal, dry, intact. Absent: erythematous Uterus: Present: normal, firm. Absent: tenderness - Labs Labs: Abnormal Lab Results - Last 24 Hours (Table) 08/31/21 Range/Units 06:54 Hgb 11.2 L (11.4-16.0) gm/dL Assessment and Plan Assessment: status post repeat section postoperative day #1 (1) 39 weeks gestation of Current Visit: No Status: Acute Code(s): Z3A.39 - 39 WEEKS GESTATION OF SNOMED Code(s): 86391377 (2) Previous delivery affecting Current Visit: No Status: Acute Code(s): O34.219 - MATERNAL CARE FOR UNSP TYPE SCAR FROM PREVIOUS DEL SNOMED Code(s): 897002006 Plan: continue with postoperative care today. We'll switch to oral pain medications today. Anticipate discharge home tomorrow.
--- NOTE | 2021-08-31 08:28 | P.PN ---
Progress Note - Text Date: 1227 Time: 07:07 The patient is status post section Vital signs stable VAS: 0-10 Patient has no complaints of pain. The patient incurred some minimal itching yesterday, this itching is now subsiding. Pain meds to be managed by service.
[2021-08-31] MEDS: ACETAMINOPHEN TAB 500 MG TAB PO SCH ×5 (08:58→23:37)
[2021-08-31] MEDS: SENNOSIDES-DOCUSATE SODIUM 1 EACH TAB PO SCH ×3 (08:59→20:23)
[2021-08-31] MEDS: IBUPROFEN 600 MG TAB PO SCH ×3 (16:20→20:22)
[2021-08-31] MEDS: LACTATED RINGERS 1,000 ML IV SCH ×2 (20:21→20:22)
[2021-08-31] MEDS: KETOROLAC 30 MG/ML 1 ML VIAL IVP SCH (20:22)
[2021-09-01] MEDS: IBUPROFEN 600 MG TAB PO SCH ×2 (06:26→09:21)
[2021-09-01] MEDS: SENNOSIDES-DOCUSATE SODIUM 1 EACH TAB PO SCH (08:23)
--- NOTE | 2021-09-01 08:47 | P.DS ---
Providers Date of admission: 08/30/21 05:56 Expected date of discharge: 09/01/21 Attending physician: Eusebia Hubbard Primary care physician: Stated None - Discharge Diagnosis(es) (1) 39 weeks gestation of Current Visit: No Status: Acute (2) Previous delivery affecting Current Visit: No Status: Acute Hospital Course: this is a 26-year-old female 2 para 1 at 39 and one sevenths weeks who presents for scheduled repeat section. She underwent a repeat low transverse section on 08/30/2021 with delivery of a viable male infant with scores of 9 at 1 minute and 9 at 5 minutes and weight of 7 lbs. 4 oz. course has been uncomplicated. Lochia has been decreasing. Her pain is well-controlled with ibuprofen and Tylenol. She is passing flatus and bowel movement. She is bottle feeding. Vital signs are stable. Abdomen is soft with positive bowel sounds 4. Incision is clean dry and intact. Extremities show negative Homans. Impression is status post repeat low transverse section postoperative day #2. Plan is to discharge home today. Routine postoperative and instructions are given. Shara will be removed and Steri-Strips placed prior to discharge. She will be given a prescription for ibuprofen. She is advised to follow up in the office in 1 week for a postoperative check and in 6 weeks for check. Procedures: repeat low transverse section on 08/30/2021 Patient Condition at Discharge: Stable Plan - Discharge Summary Discharge Rx Participant: No New Discharge Prescriptions: New Ibuprofen [Motrin] 600 mg PO Q6H #60 tab Acetaminophen Tab [Tylenol] 1,000 mg PO Q6H tab Continue Pnv No.95/Ferrous Fum/Folic AC [ Multivitamin Tablet] 1 tab PO ONCE Discharge Medication List Pnv No.95/Ferrous Fum/Folic AC [ Multivitamin Tablet] 1 tab PO ONCE 07/07/21 [History] Acetaminophen Tab [Tylenol] 1,000 mg PO Q6H tab 09/01/21 [Rx] Ibuprofen [Motrin] 600 mg PO Q6H #60 tab 09/01/21 [Rx] Follow up Appointment(s)/Referral(s): Eusebia Hubbard DO [Doctor of Osteopathic Medicine] - 10/11/21 11:30 am (C/S Follow Up- 09/06/21 @2:45pm) Activity/Diet/Wound Care/Special Instructions: Instructions 1. Do not begin any exercise program for 3 weeks. 2. Do not resume sexual relations for 3 weeks or longer if uncomfortable. 3. You may take tub baths or showers at any time. 4. You may use tampons if desired after 3 weeks. 5. Keep the area of episiotomy (stitches) clean and dry. 6. If you are not nursing, wear a good fitting, supportive bra during the day and limit fluid intake for at least 1 week to prevent breast engorgement. 7. Call the office, [phone], within the next week to make appointment for your 6 week checkup if it has not already been made. 8. Report any of the following occurrences to the doctor promptly: a. Heavy, excessive bleeding b. Chills, fever c. Burning or frequency of urination d. Pain or redness and breasts if nursing e. Increasing pain or swelling in episiotomy (stitches). In addition to the above instructions, the following additional should be followed: 1. No heavy lifting or straining (exercising) until after 6 week checkup. 2. Keep abdominal incision clean and dry: You may wear a dressing if more comfortable. 3. Make office appointment for 10 days after going home or as instructed by her doctor. Discharge Disposition: HOME SELF-CARE
[2021-09-01 09:08] VITALS: BP 113/74; PULSE 75; TEMP 97.4
[2021-09-01] MEDS: ACETAMINOPHEN TAB 500 MG TAB PO SCH (09:21)
== END 2021-09-01 10:00 | disposition home or self-care (01) | DRG 788 ==
LOC: 4FBP 05:56
PROVIDERS: ADMIT Obstetrics & Gynecology; ATTEND Obstetrics & Gynecology
PROC: 10D00Z1 Extraction of Products of Conception, Low, Open Approach (ICD-10-PCS; principal; 2021-08-30 08:22)
DX: O34.211 Maternal care for low transverse scar from previous cesarean delivery (principal); O69.81X0 Labor and delivery complicated by cord around neck, without compression, not applicable or unspecified; O99.892 Other specified diseases and conditions complicating childbirth; O99.02 Anemia complicating childbirth; D64.9 Anemia, unspecified; F32.A Depression, unspecified; O99.73 Diseases of the skin and subcutaneous tissue complicating the puerperium; L29.9 Pruritus, unspecified; H54.62 Unqualified visual loss, left eye, normal vision right eye; O99.344 Other mental disorders complicating childbirth; Z37.0 Single live birth; Z3A.39 39 weeks gestation of pregnancy
CPT/HCPCS: 85025; 86850; 86900; 86901; 87635

== ENCOUNTER 2022-07-08 22:33 | Emergency (ER) | payer BC, OTHER ==
[2022-07-08 22:38] VITALS: TEMP 98.7
--- NOTE | 2022-07-08 22:40 | ED ---
Psych HPI - General Chief Complaint: Psychiatric Symptoms Stated Complaint: Mental Health Time Seen by Provider: 07/08/22 22:40 Source: patient, RN notes reviewed, old records reviewed Mode of arrival: ambulatory - History of Present Illness Initial Comments: This is a 27-year-old female under evaluation of psychiatric illness. Patient having significant delusions and hallucinations. Denying drugs or alcohol use currently. Patient is presenting for psychiatric evaluation and treatment patient is feeling depressed and without suicidal thoughts. Patient weighs result depression, not currently breast-feeding. No new change or sick significant change in medications, no drugs or alcohol abuse MD Complaint: suicidal ideation, feels depressed -: unknown Associated Psychiatric Symptoms: depression, suicidal ideation, racing thoughts History of same: Yes Quality: constant Improves With: none Context: significant life stressor Associated Symptoms: denies other symptoms Treatments Prior to Arrival: placed on mental health hold If Self Harm: admits thoughts of self harm - Related Data Home Medications Medication Instructions Recorded Confirmed Pnv No.95/Ferrous Fum/Folic AC 1 tab PO ONCE 07/07/21 08/30/21 [ Multivitamin Tablet] Previous Rx's Medication Instructions Recorded Acetaminophen Tab [Tylenol] 1,000 mg PO Q6H tab 09/01/21 Ibuprofen [Motrin] 600 mg PO Q6H #60 tab 09/01/21 Allergies Allergy/AdvReac Type Severity Reaction Status Date / Time No Known Allergies Allergy Verified 07/08/22 22:37 Review of Systems ROS Statement: Those systems with pertinent positive or pertinent negative responses have been documented in the HPI. ROS Other: All systems not noted in ROS Statement are negative. Past Medical History Past Medical History: No Reported History Additional Past Medical History / Comment(s): anemia. lt eye legally blind History of Any Multi-Drug Resistant Organisms: None Reported Past Surgical History: Section, Ear Surgery, Orthopedic Surgery Additional Past Surgical History / Comment(s): 2 set tubes danitza EARS. left knee surgery Past Anesthesia/Blood Transfusion Reactions: No Reported Reaction Past Psychological History: Depression Smoking Status: Never smoker Past Alcohol Use History: None Reported Past Drug Use History: None Reported - Past Family History Mother History Unknown: Yes Father Family Medical History: Hypertension General Exam Limitations: no limitations General appearance: alert, in no apparent distress Head exam: Present: atraumatic, normocephalic, normal inspection Eye exam: Present: normal appearance, PERRL, EOMI. Absent: scleral icterus, conjunctival injection, periorbital swelling ENT exam: Present: normal exam, mucous membranes moist Neck exam: Present: normal inspection. Absent: tenderness, meningismus, lymphadenopathy Respiratory exam: Present: normal lung sounds bilaterally. Absent: respiratory distress, wheezes, rales, rhonchi, stridor Cardiovascular Exam: Present: regular rate, normal rhythm, normal heart sounds. Absent: systolic murmur, diastolic murmur, rubs, gallop, clicks GI/Abdominal exam: Present: soft, normal bowel sounds. Absent: distended, tenderness, guarding, rebound, rigid Extremities exam: Present: normal inspection, full ROM, normal capillary refill. Absent: tenderness, pedal edema, joint swelling, calf tenderness Back exam: Present: normal inspection Neurological exam: Present: alert, oriented X3, CN II-XII intact Psychiatric exam: Present: normal affect, normal mood Skin exam: Present: warm, dry, intact, normal color. Absent: rash Course Vital Signs 07/08/22 22:36 Temperature 98.7 F Pulse Rate 104 H Respiratory 20 Rate Blood Pressure 155/105 O2 Sat by Pulse 96 Oximetry - Reevaluation(s) Reevaluation #1: 07/09/22 00:03 Medical records reviewed Reevaluation #2: 07/09/22 00:03 Patient not homicidal or suicidal feels well Reevaluation #3: 07/09/22 00:03 Patient prefers discharged home to care of Medical Decision Making - Medical Decision Making 27 female to the emergency department for evaluation of psychiatric illness depression depression. Patient seen and evaluated here in the ER, not homicidal or suicidal and can be discharged home Disposition Clinical Impression: Depression, Acute anxiety Disposition: HOME SELF-CARE Condition: Fair Is patient prescribed a controlled substance at d/c from ED?: No Referrals: Shanice Trevino MD [Primary Care Provider] - 1-2 days Time of Disposition: 00:05
[2022-07-09] MEDS ORDERED: LORazepam 1 MG TAB PO STA (00:02)
[2022-07-09 00:39] VITALS: BP 144/92; PULSE 86; RESP 18
== END 2022-07-09 00:39 | disposition home or self-care (01) ==
LOC: EC 22:33
DX: F41.9 Anxiety disorder, unspecified (principal); F32.A Depression, unspecified
CPT/HCPCS: 82075; 99284

== ENCOUNTER 2023-03-23 20:46 | Emergency (ER) | payer BC, OTHER ==
[2023-03-23 20:50] VITALS: BP 142/84; PULSE 88; RESP 18; TEMP 98.5
[2023-03-23] MEDS ORDERED: SULFAMETHOX-TMP 800-160MG 1 EACH TAB PO STA (21:25)
[2023-03-23] MEDS ORDERED: CEPHALEXIN 500 MG CAP PO STA (21:25)
[2023-03-23] MEDS ORDERED: IBUPROFEN 400 MG TAB PO STA (21:25)
--- NOTE | 2023-03-23 21:25 | ED ---
Skin/Abscess/FB HPI - General Chief complaint: Skin/Abscess/Foreign Body Stated complaint: Painful spot on leg Time Seen by Provider: 03/23/23 21:01 Source: patient Mode of arrival: ambulatory Limitations: no limitations - History of Present Illness Initial comments: 27-year-old female presenting with chief complaint of painful cyst located on the left glute. She states that a bump developed 2 days ago which was small in size, she attempted to use warm compresses and warm baths to treat it but today it became much larger and more painful. The surrounding area is red. No discharge is been expressed from the area. No fever, chills, nausea, vomiting, abdominal pain. - Related Data Home Medications Medication Instructions Recorded Confirmed Pnv No.95/Ferrous Fum/Folic AC 1 tab PO ONCE 07/07/21 08/30/21 [ Multivitamin Tablet] Previous Rx's Medication Instructions Recorded Acetaminophen Tab [Tylenol] 1,000 mg PO Q6H tab 09/01/21 Ibuprofen [Motrin] 600 mg PO Q6H #60 tab 09/01/21 Cephalexin [Keflex] 500 mg PO Q6HR 7 Days #28 cap 03/23/23 Sulfamethox-Tmp 800-160Mg [Bactrim 1 tab PO Q12HR 7 Days #14 tab 03/23/23 DS 800-160 mg] Allergies Allergy/AdvReac Type Severity Reaction Status Date / Time No Known Allergies Allergy Verified 03/23/23 20:50 Review of Systems ROS Statement: Those systems with pertinent positive or pertinent negative responses have been documented in the HPI. ROS Other: All systems not noted in ROS Statement are negative. Past Medical History Past Medical History: No Reported History Additional Past Medical History / Comment(s): anemia. lt eye legally blind History of Any Multi-Drug Resistant Organisms: None Reported Past Surgical History: Section, Ear Surgery, Orthopedic Surgery Additional Past Surgical History / Comment(s): 2 set tubes danitza EARS. left knee surgery Past Anesthesia/Blood Transfusion Reactions: No Reported Reaction Past Psychological History: Depression Smoking Status: Never smoker Past Alcohol Use History: None Reported Past Drug Use History: None Reported - Past Family History Mother History Unknown: Yes Father Family Medical History: Hypertension General Exam Limitations: no limitations General appearance: alert, in no apparent distress Head exam: Present: atraumatic, normocephalic, normal inspection Eye exam: Present: normal appearance Neck exam: Present: normal inspection, full ROM Neurological exam: Present: alert, oriented X3, CN II-XII intact Psychiatric exam: Present: normal affect, normal mood Expanded Type of lesion: Present: abscess (3 cm indurated abscess to the left gluteal) Course Vital Signs 03/23/23 20:48 Temperature 98.5 F Pulse Rate 88 Respiratory 18 Rate Blood Pressure 142/84 O2 Sat by Pulse 98 Oximetry Medical Decision Making - Medical Decision Making Was pt. sent in by a medical professional or institution (, MELISSA, B[employer] SAL[employer]ICE MANAGER, urgent care, hospital, or shelter...) When possible be specific @ -No Did you speak to anyone other than the patient for history (EMS, parent, family, police, friend...)? What history was obtained from this source @ -No Did you review nursing and triage notes (agree or disagree)? Why? @ -I reviewed and agree with nursing and triage notes Were old charts reviewed (outside hosp., previous admission, EMS record, old EKG, old radiological studies, urgent care reports/EKG's, shelter records)? Report findings @ -No old charts were reviewed Differential Diagnosis (chest pain, altered mental status, abdominal pain women, abdominal pain men, vaginal bleeding, weakness, fever, dyspnea, syncope, headache, dizziness, GI bleed, back pain, seizure, CVA, palpatations, mental health, musculoskeletal)? @ -Differential includes cellulitis, abscess, ALLERGIC reaction, this is not a known conclusively it EKG interpreted by me (3pts min.). @ -As above X-rays interpreted by me (1pt min.). @ -None done CT interpreted by me (1pt min.). @ -None done U/S interpreted by me (1pt. min.). @ -None done What testing was considered but not performed or refused? (CT, X-rays, U/S, labs)? Why? @ -None What meds were considered but not given or refused? Why? @ -None Did you discuss the management of the patient with other professionals (professionals i.e. MELISSA Roth, B[employer] SALES AND SERVICE MANAGER, lab, RT, psych nurse, social services coordinator, manufacturing engineer machining, teacher, tactical intelligence officer, case therapist)? Give summary @ -No Was smoking cessation discussed for >3mins.? @ -No Was critical care preformed (if so, how long)? @ -No Were there social determinants of health that impacted care today? How? (Homelessness, low income, unemployed, alcoholism, drug addiction, transportation, low edu. Level, literacy, decrease access to med. care, penitentiary, rehab)? @ -No Was there de-escalation of care discussed even if they declined (Discuss DNR or withdrawal of care, Hospice)? DNR status @ -No What co-morbidities impacted this encounter? (DM, HTN, Smoking, COPD, CAD, Cancer, CVA, ARF, Chemo, Hep., AIDS, mental health diagnosis, sleep apnea, morbid obesity)? @ -None Was patient admitted / discharged? Hospital course, mention meds given and route, prescriptions, significant lab abnormalities, going to OR and other pertinent info. @ -27-year-old female presenting with chief complaint of painful cyst. On physical examination there is an erythematous and indurated abscess near the inferior portion of the left gluteal. No fluctuant spot for incision and drainage. Attempted needle aspiration but only was able to express blood. Patient is started on Bactrim and Keflex and educated on supportive management home with warm compresses and Motrin and Tylenol. Follow-up with PCP. Report back to ER with any new or worsening symptoms. Discussed return parameters and answered all questions. Patient conveyed verbal understanding and agreed to the plan. I discussed this case in detail with my attending Dr. Stern Undiagnosed new problem with uncertain prognosis? @ -No Drug Therapy requiring intensive monitoring for toxicity (Heparin, Nitro, Insulin, Cardizem)? @ -No Were any procedures done? @ -No Diagnosis/symptom? @ -Abscess Acute, or Chronic, or Acute on Chronic? @ -Acute Uncomplicated (without systemic symptoms) or Complicated (systemic symptoms)? @ -Uncomplicated Side effects of treatment? @ -No Exacerbation, Progression, or Severe Exacerbation? @ -No Poses a threat to life or bodily function? How? (Chest pain, [place], [place], pneumonia, PE, COPD, DKA, ARF, appy, cholecystitis, CVA, Diverticulitis, Homicidal, Suicidal, threat to staff... and all critical care pts) @ -No Disposition Clinical Impression: Abscess Disposition: HOME SELF-CARE Condition: Good Instructions (If sedation given, give patient instructions): Abscess (ED) Additional Instructions: Follow-up with PCP. Report back to ER with any new or worsening symptoms. Take medication as prescribed. Alternate Motrin and Tylenol as needed for pain control. Continue to use warm compresses frequently. Prescriptions: Sulfamethox-Tmp 800-160Mg [Bactrim DS 800-160 mg] 1 tab PO Q12HR 7 Days #14 tab Cephalexin [Keflex] 500 mg PO Q6HR 7 Days #28 cap Is patient prescribed a controlled substance at d/c from ED?: No Referrals: Shanice Trevino MD [Primary Care Provider] - 1-2 days Time of Disposition: 21:25
== END 2023-03-23 21:44 | disposition home or self-care (01) ==
LOC: EC 20:46
DX: L02.31 Cutaneous abscess of buttock (principal)
CPT/HCPCS: 99282

== ENCOUNTER 2024-03-25 10:06 | Emergency (ER) | payer BC, OTHER ==
[2024-03-25 10:18] VITALS: RESP 18
--- NOTE | 2024-03-25 10:44 | ED ---
Lower Extremity Injury HPI - General Chief Complaint: Extremity Injury, Lower Stated Complaint: foot injury Time Seen by Provider: 03/25/24 10:19 Source: patient, RN notes reviewed Mode of arrival: ambulatory Limitations: no limitations - History of Present Illness Initial Comments: 28-year-old female presents emergency department chief complaint of left foot injury. Patient states that she was horsing around states that he had stepped down and states that she has pain in the lateral portion of her foot no ankle pain she has been extends out to her toe. No paresthesias mild swelling and bruising noted - Related Data Home Medications Medication Instructions Recorded Confirmed Pnv No.95/Ferrous Fum/Folic AC 1 tab PO ONCE 07/07/21 08/30/21 [ Multivitamin Tablet] Previous Rx's Medication Instructions Recorded Acetaminophen Tab [Tylenol] 1,000 mg PO Q6H tab 09/01/21 Ibuprofen [Motrin] 600 mg PO Q6H #60 tab 09/01/21 Cephalexin [Keflex] 500 mg PO Q6HR 7 Days #28 cap 03/23/23 Sulfamethox-Tmp 800-160Mg [Bactrim 1 tab PO Q12HR 7 Days #14 tab 03/23/23 DS 800-160 mg] Ibuprofen [Motrin] 600 mg PO Q8HR PRN #20 tab 03/25/24 Allergies Allergy/AdvReac Type Severity Reaction Status Date / Time No Known Allergies Allergy Verified 03/25/24 10:18 Review of Systems ROS Statement: Those systems with pertinent positive or pertinent negative responses have been documented in the HPI. ROS Other: All systems not noted in ROS Statement are negative. Past Medical History Past Medical History: No Reported History Additional Past Medical History / Comment(s): anemia. lt eye legally blind History of Any Multi-Drug Resistant Organisms: None Reported Past Surgical History: Section, Ear Surgery, Orthopedic Surgery Additional Past Surgical History / Comment(s): 2 set tubes danitza EARS. left knee surgery Past Anesthesia/Blood Transfusion Reactions: No Reported Reaction Past Psychological History: Depression Smoking Status: Never smoker Past Alcohol Use History: None Reported Past Drug Use History: None Reported - Past Family History Mother History Unknown: Yes Father Family Medical History: Hypertension General Exam Limitations: no limitations General appearance: alert, in no apparent distress Head exam: Present: atraumatic, normocephalic, normal inspection Respiratory exam: Present: normal lung sounds bilaterally. Absent: respiratory distress, wheezes, rales, rhonchi, stridor Cardiovascular Exam: Present: regular rate, normal rhythm, normal heart sounds. Absent: systolic murmur, diastolic murmur, rubs, gallop, clicks Extremities exam: Present: other (Left foot there is tenderness in the lateral portion, no malleoli or tenderness neurovascular intact mild swelling ecchymosis) Course Vital Signs 03/25/24 10:14 Temperature 99.1 F Pulse Rate 61 Respiratory 18 Rate Blood Pressure 118/78 O2 Sat by Pulse 98 Oximetry Medical Decision Making - Medical Decision Making Was pt. sent in by a medical professional or institution (, MELISSA, TANK CLEANER, urgent care, hospital, or custodial...) When possible be specific @ -No Did you speak to anyone other than the patient for history (EMS, parent, family, police, friend...)? What history was obtained from this source @ -No Did you review nursing and triage notes (agree or disagree)? Why? @ -I reviewed and agree with nursing and triage notes Were old charts reviewed (outside hosp., previous admission, EMS record, old EKG, old radiological studies, urgent care reports/EKG's, custodial records)? Report findings @ -No old charts were reviewed Differential Diagnosis (chest pain, altered mental status, abdominal pain women, abdominal pain men, vaginal bleeding, weakness, fever, dyspnea, syncope, headache, dizziness, GI bleed, back pain, seizure, CVA, palpatations, mental health, musculoskeletal)? @ -Foot contusion, foot fracture EKG interpreted by me (3pts min.). @ -None X-rays interpreted by me (1pt min.). @ -X-ray left foot 3 view no acute fracture CT interpreted by me (1pt min.). @ -None done U/S interpreted by me (1pt. min.). @ -None done What testing was considered but not performed or refused? (CT, X-rays, U/S, labs)? Why? @ -None What meds were considered but not given or refused? Why? @ -None Did you discuss the management of the patient with other professionals (professionals i.e. MELISSA Roth, TANK CLEANER, lab, RT, psych nurse, social worker psychiatric, freelance translator, teacher, sheriff officer, rn case mgr)? Give summary @ -No Was smoking cessation discussed for >3mins.? @ -No Was critical care preformed (if so, how long)? @ -No Were there social determinants of health that impacted care today? How? (Homelessness, low income, unemployed, alcoholism, drug addiction, transportation, low edu. Level, literacy, decrease access to med. care, alf, rehab)? @ -No Was there de-escalation of care discussed even if they declined (Discuss DNR or withdrawal of care, Hospice)? DNR status @ -No What co-morbidities impacted this encounter? (DM, HTN, Smoking, COPD, CAD, Cancer, CVA, ARF, Chemo, Hep., AIDS, mental health diagnosis, sleep apnea, morbid obesity)? @ -None Was patient admitted / discharged? Hospital course, mention meds given and route, prescriptions, significant lab abnormalities, going to OR and other pertinent info. @ -Discharge of the left foot contusion no acute fracture Undiagnosed new problem with uncertain prognosis? @ -No Drug Therapy requiring intensive monitoring for toxicity (Heparin, Nitro, Insulin, Cardizem)? @ -No Were any procedures done? @ -No Diagnosis/symptom? @ -Left foot contusion, sprain Acute, or Chronic, or Acute on Chronic? @ -Acute Uncomplicated (without systemic symptoms) or Complicated (systemic symptoms)? @ -Uncomplicated Side effects of treatment? @ -No Exacerbation, Progression, or Severe Exacerbation? @ -No Poses a threat to life or bodily function? How? (Chest pain, [place], [place], pneumonia, PE, COPD, DKA, ARF, appy, cholecystitis, CVA, Diverticulitis, Homicidal, Suicidal, threat to staff... and all critical care pts) @ -No Disposition Clinical Impression: Foot contusion, Sprain of foot, left Disposition: HOME SELF-CARE Condition: Stable Instructions (If sedation given, give patient instructions): Foot Contusion (ED), Foot Sprain (ED) Additional Instructions: Please return to the Emergency Department if symptoms worsen or any other concerns. Prescriptions: Ibuprofen [Motrin] 600 mg PO Q8HR PRN #20 tab PRN Reason: Pain Is patient prescribed a controlled substance at d/c from ED?: No Referrals: Shanice Trevino MD [Primary Care Provider] - 1-2 days Time of Disposition: 10:54
--- NOTE | 2024-03-25 10:45 | XR ---
EXAMINATION TYPE: XR foot complete LT DATE OF EXAM: 03/25/2024 COMPARISON: NONE HISTORY: Pain TECHNIQUE: Three views are submitted. FINDINGS: The osseous structures are intact. There is no acute fracture or dislocation. Joint spaces are p reserved. Hammertoe deformity of the second through fourth digits. IMPRESSION: 1. No acute fracture or dislocation. If symptoms persist, follow-up exam in 7 to 10 days could be ob tained.
[2024-03-25 11:01] VITALS: BP 126/80; PULSE 72; TEMP 97.9
== END 2024-03-25 11:02 | disposition home or self-care (01) ==
LOC: EC 10:06
DX: S93.602A Unspecified sprain of left foot, initial encounter (principal); W55.12XA Struck by horse, initial encounter; Y93.52 Activity, horseback riding
CPT/HCPCS: 99283

== ENCOUNTER 2024-12-29 19:39 | Emergency (ER) | payer OTHER ==
--- NOTE | 2024-12-29 21:07 | ED ---
Abdominal Pain HPI - General Source: patient, RN notes reviewed Mode of arrival: ambulatory Limitations: no limitations <Di Mas - Last Filed: 12/29/24 22:53> <Mera Gonsalez - Last Filed: 12/30/24 00:24> - General Chief Complaint: Abdominal Pain Stated Complaint: back and abdominal pain 18 weeks Time Seen by Provider: 12/29/24 21:07 - History of Present Illness Initial Comments: 29-year-old A1 approximately 18 weeks gestation female presented the ER for evaluation of left-sided back/abdominal pain. Patient reports her last menstrual cycle was 08-26-2024. She is following up with MOTION STUDY ANALYST, Dr. Jin. Patient reports earlier today she started to experience lower back pain. She states she occasionally gets this and thought nothing of it. She states throughout the day it has progressively worsened into her lower left abdomen. She states it is an achy pain. Patient admits to nausea but states she is always nauseous during . She denies any vomiting, fevers, chills, diarrhea, constipation or urinary complaints. Patient denies a history of kidney stones. She denies any abnormal vaginal discharge or vaginal bleeding. She admits to some movement. Patient has not taken anything for her symptoms at this time. She denies any other complaints. Patient reports she had had prior ultrasound at approximately 10 weeks gestation showing an IUP. (Di Mas) - Related Data Previous Rx's Medication Instructions Recorded Ibuprofen [Motrin] 600 mg PO Q8HR PRN #20 tab 03/25/24 Allergies Allergy/AdvReac Type Severity Reaction Status Date / Time No Known Allergies Allergy Verified 12/29/24 19:58 Review of Systems ROS Other: All systems not noted in ROS Statement are negative. <Di Mas - Last Filed: 12/29/24 22:53> ROS Other: All systems not noted in ROS Statement are negative. <Mera Gonsalez - Last Filed: 12/30/24 00:24> ROS Statement: Those systems with pertinent positive or pertinent negative responses have been documented in the HPI. Past Medical History Past Medical History: No Reported History Additional Past Medical History / Comment(s): anemia. lt eye legally blind History of Any Multi-Drug Resistant Organisms: None Reported Past Surgical History: Section, Ear Surgery, Orthopedic Surgery Additional Past Surgical History / Comment(s): 2 set tubes danitza EARS. left knee surgery Past Anesthesia/Blood Transfusion Reactions: No Reported Reaction Past Psychological History: Depression Smoking Status: Never smoker Past Alcohol Use History: None Reported Past Drug Use History: None Reported - Past Family History Mother History Unknown: Yes Father Family Medical History: Hypertension <Di Mas - Last Filed: 12/29/24 22:53> General Exam Limitations: no limitations <Di Mas - Last Filed: 12/29/24 22:53> Course <Di Mas - Last Filed: 12/29/24 22:53> Vital Signs 12/29/24 12/29/24 19:55 23:53 Temperature 98.2 F 97.9 F Pulse Rate 102 H 72 Respiratory 17 18 Rate Blood Pressure 105/71 106/63 O2 Sat by Pulse 99 97 Oximetry - Reevaluation(s) Reevaluation #1: 12/29/24 22:40 heart tones completed by mother-baby RN. Heart tones ranging from 144-155 with audible movement and accelerations heard per RN note. (Di Mas) Reevaluation #2: 12/29/24 22:53 Patient signed out to Mera Gonsalez PA-C (Di Mas) Medical Decision Making - Lab Data Result diagrams: 12/29/24 21:21 <Di Mas - Last Filed: 12/29/24 22:53> - Lab Data Result diagrams: 12/29/24 21:21 12/29/24 22:49 <Mera Gonsalez - Last Filed: 12/30/24 00:24> - Medical Decision Making Was pt. sent in by a medical professional or institution (Dr. PA, BULK RECEIVER, urgent care, hospital, or shelter...) When possible be specific @ -No Did you speak to anyone other than the patient for history (EMS, parent, family, police, friend...)? What history was obtained from this source @ -No Did you review nursing and triage notes (agree or disagree)? Why? @ -I reviewed and agree with nursing and triage notes Were old charts reviewed (outside hosp., previous admission, EMS record, old EKG, old radiological studies, urgent care reports/EKG's, shelter records)? Report findings @ -No old charts were reviewed Differential Diagnosis (chest pain, altered mental status, abdominal pain women, abdominal pain men, vaginal bleeding, weakness, fever, dyspnea, syncope, heada refugio, dizziness, GI bleed, back pain, seizure, CVA, palpatations, mental health, musculoskeletal)? @ -Differential Abdominal Pain Women:Appendicitis, Cholecystitis, diverticulosis, ischemic bowel, pancreatitis, hepatitis, UTI, gastroenteritis, AAA, incarcerated hernia, bowel obstruction, constipation, inflammatory bowel, hepatitis, peptic ulcer disease, splenic infarction, perforated viscus, vulv itis, ovarian torsion, PID, kidney stone, placenta abruption, this is not meant to be an all-inclusive list EKG interpreted by me (3pts min.). @ -None done X-rays interpreted by me (1pt min.). @ -None done CT interpreted by me (1pt min.). @ -None done U/S interpreted by me (1pt. min.). @ -None done What testing was considered but not performed or refused? (CT, X-rays, U/S, labs)? Why? @ -None What meds were considered but not given or refused? Why? @ -None Did you discuss the management of the patient with other professionals (professionals i.e. , PA, BULK RECEIVER, lab, RT, psych nurse, psychotherapist social worker, supervisor mechanic boilermaking, teacher, corporate security officer, case specialist)? Give summary @ -No Was smoking cessation discussed for >3mins.? @ -No Was critical care preformed (if so, how long)? @ -No Were there social determinants of health that impacted care today? How? (Homelessness, low income, unemployed, alcoholism, drug addiction, transportation, low edu. Level, literacy, decrease access to med. care, half-way, r ehab)? @ -No Was there de-escalation of care discussed even if they declined (Discuss DNR or withdrawal of care, Hospice)? DNR status @ -No What co-morbidities impacted this encounter? (DM, HTN, Smoking, COPD, CAD, Cancer, CVA, ARF, Chemo, Hep., AIDS, mental health diagnosis, sleep apnea, morbid obesity)? @ - Was patient admitted / discharged? Hospital course, mention meds given and ro [place], prescriptions, significant lab abnormalities, going to OR and other pertinent info. @ -29-year-old female presented the ER for evaluation of left sided back/abdominal pain. Vitals within acceptable limits. Laboratory studies obtained including CBC, lactic, CMP and UA. CBC unimpressive. Lactic 1.3. Urinalysis without evidence of infection. heart tones with appropriate ac celerations ranging from 144-155 completed by mother-baby. Patient received Tylenol and IV fluids. CMP and disposition pending at time of signout to Mera Gonsalez PA-C at my shift completion. (Di Mas) Was patient admitted / discharged? Hospital course, mention meds given and route, prescriptions, significant lab abnormalities, going to OR and other pertinent info. @ -Discharge. Patient was signed out to me pending lab work and disposition. This is a 29-year-old female at 18 weeks gestation presenting with left flank/abdominal pain 1 day. Denies vaginal bleeding. Vitals within acceptable limits. Is well-appearing, no acute distress. Previous ultrasound performed at 10 weeks gestation which revealed normal IUP. Lab work largely unremarkable. White blood cell count 9.7, lactic 1.3, kidney function normal, urinalysis unremarkable. heart tones with appropriate accelerations ranging from 144-155 completed by mother/baby. Discussed negative results with patient. I do not identify emergent etiology causing symptoms at this time. Patient states she is feeling better and is comfortable with discharge and following up with OB tomorrow. Appropriate return precautions discussed. Case was discussed with my ED attending Dr. Mendez Undiagnosed new problem with uncertain prognosis? @ -No Drug Therapy requiring intensive monitoring for toxicity (Heparin, Nitro, Insulin, Cardizem)? @ -No Were any procedures done? @ -No Diagnosis/symptom? @ -Abdominal pain in Acute, or Chronic, or Acute on Chronic? @ -Acute Uncomplicated (without systemic symptoms) or Complicated (systemic symptoms)? @ -Uncomplicated Side effects of treatment? @ -No Exacerbation, Progression, or Severe Exacerbation? @ -No Poses a threat to life or bodily function? How? (Chest pain, [place], [place], pneumonia, PE, COPD, DKA, ARF, appy, cholecystitis, CVA, Diverticulitis, Homicidal, Suicidal, threat to staff... and all critical care pts) @ -Not at this time (Mera Gonsalez) - Lab Data Lab Results 12/29/24 12/29/24 12/29/24 Range/Units 20:50 21:21 21:21 WBC 9.76 (4.50-10.00) 10*3/uL RBC 4.70 (4.10-5.20) 10*6/uL Hgb 12.3 (12.0-15.0) g/dL Hct 36.1 L (37.2-46.3) % MCV 76.8 L (80.0-97.0) fL MCH 26.2 L (27.0-32.0) pg MCHC 34.1 (32.0-37.0) g/dL Plt Count 237 (140-440) 10*3/uL MPV 10.6 (9.5-12.2) fL Immature Gran % (Auto) 0.3 % Neutrophils % 60.0 % Lymphocytes % 31.0 % Monocytes % 7.5 % Eosinophils % 0.9 % Basophils % 0.3 % Immature Gran # 0.03 (0.00-0.04) 10*3/uL Neutrophils # 5.85 (1.80-7.70) 10*3/uL Lymphocytes # 3.03 (0.90-5.00) 10*3/uL Monocytes # 0.73 (0.20-1.00) 10*3/uL Eosinophils # 0.09 (0.04-0.35) 10*3/uL Basophils # 0.03 (0.00-0.10) 10*3/uL Sodium (137-145) mmol/L Potassium (3.5-5.1) mmol/L Chloride (98-107) mmol/L Carbon Dioxide (22-30) mmol/L Anion Gap mmol/L BUN (7-17) mg/dL Creatinine (0.52-1.04) mg/dL Est GFR (CKD-EPI)AfAm (>60 ml/min/1.73 sqM) Est GFR (CKD-EPI)NonAf (>60 ml/min/1.73 sqM) Glucose (74-99) mg/dL Plasma Lactic Acid Kashif 1.3 (0.7-2.0) mmol/L Calcium (8.4-10.2) mg/dL Total Bilirubin (0.2-1.3) mg/dL AST (14-36) U/L ALT (4-34) U/L Alkaline Phosphatase (38-126) U/L Total Protein (6.3-8.2) g/dL Albumin (3.5-5.0) g/dL Lipase (23-300) U/L Urine Color Colorless Urine Appearance Clear (Clear) Urine pH 7.0 (5.0-8.0) Ur Specific Orient 1.010 (1.001-1.035) Urine Protein Negative (Negative) Urine Glucose (UA) Negative (Negative) Urine Ketones Negative (Negative) Urine Blood Negative (Negative) Urine Nitrite Negative (Negative) Urine Bilirubin Negative (Negative) Urine Urobilinogen <2.0 (<2.0) mg/dL Ur Leukocyte Esterase Negative (Negative) 12/29/24 Range/Units 22:49 WBC (4.50-10.00) 10*3/uL RBC (4.10-5.20) 10*6/uL Hgb (12.0-15.0) g/dL Hct (37.2-46.3) % MCV (80.0-97.0) fL MCH (27.0-32.0) pg MCHC (32.0-37.0) g/dL Plt Count (140-440) 10*3/uL MPV (9.5-12.2) fL Immature Gran % (Auto) % Neutrophils % % Lymphocytes % % Monocytes % % Eosinophils % % Basophils % % Immature Gran # (0.00-0.04) 10*3/uL Neutrophils # (1.80-7.70) 10*3/uL Lymphocytes # (0.90-5.00) 10*3/uL Monocytes # (0.20-1.00) 10*3/uL Eosinophils # (0.04-0.35) 10*3/uL Basophils # (0.00-0.10) 10*3/uL Sodium 135 L (137-145) mmol/L Potassium 3.8 (3.5-5.1) mmol/L Chloride 109 H (98-107) mmol/L Carbon Dioxide 18 L (22-30) mmol/L Anion Gap 8 mmol/L BUN 5 L (7-17) mg/dL Creatinine 0.46 L (0.52-1.04) mg/dL Est GFR (CKD-EPI)AfAm >90 (>60 ml/min/1.73 sqM) Est GFR (CKD-EPI)NonAf >90 (>60 ml/min/1.73 sqM) Glucose 87 (74-99) mg/dL Plasma Lactic Acid Kashif (0.7-2.0) mmol/L Calcium 8.8 (8.4-10.2) mg/dL Total Bilirubin 0.7 (0.2-1.3) mg/dL AST 18 (14-36) U/L ALT 10 (4-34) U/L Alkaline Phosphatase 64 (38-126) U/L Total Protein 5.9 L (6.3-8.2) g/dL Albumin 3.1 L (3.5-5.0) g/dL Lipase 102 (23-300) U/L Urine Color Urine Appearance (Clear) Urine pH (5.0-8.0) Ur Specific Orient (1.001-1.035) Urine Protein (Negative) Urine Glucose (UA) (Negative) Urine Ketones (Negative) Urine Blood (Negative) Urine Nitrite (Negative) Urine Bilirubin (Negative) Urine Urobilinogen (<2.0) mg/dL Ur Leukocyte Esterase (Negative) Disposition <Di Mas - Last Filed: 12/29/24 22:53> Is patient prescribed a controlled substance at d/c from ED?: No Time of Disposition: 00:01 <Mera Gonsalez - Last Filed: 12/30/24 00:24> Clinical Impression: Abdominal pain during Disposition: HOME SELF-CARE Condition: Stable Instructions (If sedation given, give patient instructions): Abdominal Pain in (ED) Additional Instructions: Follow-up with Dr. Jin this week as discussed. Please return to the Emergency Department if symptoms worsen or any other concerns. Referrals: None,Stated [Primary Care Provider] - 1-2 days
[2024-12-29 21:38] LABS: Basophils # (A) 0.03 10*3/uL (0.00-0.10); Basophils % (A) 0.3 %; Eosinophils # (A) 0.09 10*3/uL (0.04-0.35); Eosinophils % (A) 0.9 %; HCT 36.1 % (37.2-46.3); HGB 12.3 g/dL (12.0-15.0); Lymphocytes # (A) 3.03 10*3/uL (0.90-5.00); MCH 26.2 pg (27.0-32.0); MCHC 34.1 g/dL (32.0-37.0); MCV 76.8 fL (80.0-97.0); Mean Platelet Volume 10.6 fL (9.5-12.2); Monocytes # (A) 0.73 10*3/uL (0.20-1.00); Monocytes % (A) 7.5 %; Neutrophils # (A) 5.85 10*3/uL (1.80-7.70); Platelet Count 237 10*3/uL (140-440); RDW 16.2 % (11.5-14.5); WBC 9.76 10*3/uL (4.50-10.00)
[2024-12-29] MEDS: SODIUM CHLORIDE 0.9% 1,000 ML IV ONE (21:43)
[2024-12-29] MEDS: ACETAMINOPHEN TAB 325 MG TAB PO STA (21:43)
[2024-12-29 21:48] LABS: Appearance,Urine Clear (Clear); Bilirubin,Urine Negative (Negative); Blood,Urine Negative (Negative); Color,Urine Colorless; Glucose,Urine (UA) Negative (Negative); Ketones,Urine Negative (Negative); Leukocyte Esterase,Urine Negative (Negative); Nitrite,Urine Negative (Negative); Protein,Urine Negative (Negative); Urobilinogen,Urine <2.0 mg/dL (<2.0)
[2024-12-29 23:23] LABS: ALT 10 U/L (4-34); AST 18 U/L (14-36); African American GFR (CKD) >90 (>60 ml/min/1.73 sqM); Albumin 3.1 g/dL (3.5-5.0); Alkaline Phosphatase 64 U/L (38-126); Anion Gap 8 mmol/L; Blood Urea Nitrogen 5 mg/dL (7-17); Calcium 8.8 mg/dL (8.4-10.2); Carbon Dioxide 18 mmol/L (22-30); Chloride 109 mmol/L (98-107); Glucose 87 mg/dL (74-99); Lipase 102 U/L (23-300); Non-African American GFR(CKD) >90 (>60 ml/min/1.73 sqM); Potassium 3.8 mmol/L (3.5-5.1); Sodium 135 mmol/L (137-145); Total Bilirubin 0.7 mg/dL (0.2-1.3); Total Protein 5.9 g/dL (6.3-8.2)
[2024-12-29 23:55] VITALS: BP 106/63; PULSE 72; RESP 18; TEMP 97.9
[2024-12-30 00:22] LABS: HCG,Quantitative Serum 17857.3 mIU/mL
== END 2024-12-30 00:22 | disposition home or self-care (01) ==
LOC: EC 19:39
DX: O26.892 Other specified pregnancy related conditions, second trimester (principal); R10.32 Left lower quadrant pain; Z3A.18 18 weeks gestation of pregnancy
CPT/HCPCS: 36415; 80053; 81003; 83605; 83690; 84702; 85025; 96360; 99284